=== PATIENT | female | born 1970 | race Caucasian/White ===

== ENCOUNTER 2025-10-08 01:40 | Inpatient (IN) | payer MEDICAID, OTHER ==
[~2025-10-08] VITALS: Ht 167.6 cm; Wt 98.8 kg
[2025-10-08] VITALS (11 sets, daily range): BP systolic 116–154; BP diastolic 61–75; PULSE 58–87; RESP 13–19; TEMP 97.3–98; O2SAT 95–98
--- NOTE | 2025-10-08 02:14 | ED.PDOC ---
HPI Comments 55-year-old male who came to ER for chest pains. Patient with history of hypertension. Has been complaining of diffuse chest pains for the past 2 days, that worsened tonight. Complaining also shortness of breath. No nausea or vomiting noted Chief Complaint: Chest Pain Time Seen by MD: 02:13 Reviewed Notes: Nurses Notes Allergies: Coded Allergies: NO KNOWN ALLERGIES (Unverified , 10/08/25) Information Source: Patient Mode of Arrival: Ambulatory Past Medical History PAST MEDICAL HISTORY: HTN Surgical History: Denies all surgeries Family History Family History: Reviewed,noncontributory to illness Social History Smoker: Non-Smoker Alcohol: Denies ETOH Use Drugs: Denies Drug Use Lives In: Home Constitutional: denies: chills, diaphoresis, fatigue, fever, malaise, sweats, weakness, others EENTM: denies: blurred vision, double vision, ear bleeding, ear discharge, ear drainage, ear pain, ear ringing, eye pain, eye redness, hearing loss, mouth pain, mouth swelling, nasal discharge, nose bleeding, nose congestion, nose pain, photophobia, tearing, throat pain, throat swelling, voice changes, others Respiratory: denies: cough, hemoptysis, orthopnea, SOB at rest, shortness of breath, SOB with excertion, stridor, wheezing, others Cardiovascular: reports: chest pain; denies: dizzy spells, diaphoresis, Dyspnea on exertion, edema, irregular heart beat, left arm pain, lightheadedness, palpitations, PND, syncope, others Gastrointestinal: denies: abdomen distended, abdominal pain, blood streaked bowels, constipated, diarrhea, dysphagia, difficulty swallowing, hematemesis, melena, nausea, poor appetite, poor fluid intake, rectal bleeding, rectal pain, vomiting, others Genitourinary: denies: burning, dysuria, flank pain, frequency, hematuria, incontinence, penile discharge, penile sore, pain, testicle pain, testicle swelling, urgency, others Neurological: denies: dizziness, fainting, headache, left sided numbness, left sided weakness, numbness, paresthesia, pre-existing deficit, right sided numbness, right sided weakness, seizure, speech problems, tingling, tremors, weakness, others Musculoskeletal: denies: back pain, gout, joint pain, joint swelling, muscle pain, muscle stiffness, neck pain, others Integumetry: denies: bruises, change in color, change in hair/nails, dryness, laceration, lesions, lumps, rash, wounds, others Allergic/Immunocompromised: denies: Difficulty Healing, Frequent Infections, Hives, Itching, others Hematologic/Lymphatic: denies: anemia, blood clots, easy bleeding, easy bruising, swollen glands, others Endocrine: denies: excessive hunger, excessive sweating, excessive thirst, excessive urination, flushing, intolerance to cold, intolerance to heat, unexplained weight gain, unexplained weight loss, others Psychiatric: denies: anxiety, bipolar disorder, depression, hopeless, panic disorder, schizophrenia, sleepless, suicidal, others Physical Exam General Appearance: No Apparent Distress, Normal HEENT: Normal ENT Inspection, Pharynx Normal, TMs Normal Neck: Full Range of Motion, Non-Tender, Normal, Normal Inspection Respiratory: Chest Non-Tender, Lungs Clear, No Accessory Muscle Use, No Respiratory Distress, Normal Breath Sounds Cardiovascular: No Edema, No JVD, No Murmur, No Gallop, Normal Peripheral Pulses, Regular Rate/Rhythm Breast Exam: Deferred Gastrointestinal: No Organomegaly, Non Tender, No Pulsatile Mass, Normal Bowel Sounds, Soft Genitalia: Deferred Pelvic: Deferred Rectal: Deferred Extremities: No calf tenderness, Normal capillary refill, Normal inspection, Normal range of motion, Non-tender, No pedal edema Musculoskeletal : Apperance: Normal 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 Was a procedure done?: No CP Differential Dx Differential Diagnosis: Angina, Anxiety / Panic Attack, Hyperventilation, Hypoxia Differential Diagnosis: Angina, Chest Wall Pain, Costochondritis, Esophageal reflux/spasm, Gastritis, Myocardial Infarction X-Ray, Labs, Meds, VS Vital Signs Date Time Temp Pulse Resp B/P (MAP) Pulse Ox O2 Delivery O2 Flow Rate FiO2 10/08/25 02:51 79 10/08/25 02:14 71 10/08/25 01:50 71 10/08/25 01:45 63 20 220/109 98 Lab Test 10/08/25 02:59 10/08/25 01:25 Range/Units Troponin I High Sensitivity 235 *H 149 *H </=54 ng/L White Blood Count 11.3 H 4.4-10.8 10^3/uL Red Blood Count 4.67 4.5-5.90 10^6/uL Hemoglobin 15.1 13.5-17.5 g/dL Hematocrit 44.8 41.0-53.0 % Mean Corpuscular Volume 96.0 80.0-100.0 fL Mean Corpuscular Hemoglobin 32.2 H 28.0-32.0 pg Mean Corpuscular Hemoglobin Concent 33.6 32.0-36.0 g/dL Red Cell Distribution Width 14.1 11.8-14.3 % Platelet Count 306 140-450 10^3/uL Mean Platelet Volume 7.4 6.9-10.8 fL Neutrophils (%) (Auto) 63.9 37.0-80.0 % Lymphocytes (%) (Auto) 25.9 10.0-50.0 % Monocytes (%) (Auto) 6.9 0.0-12.0 % Eosinophils (%) (Auto) 2.3 0.0-7.0 % Basophils (%) (Auto) 1.0 0.0-2.0 % Neutrophils # (Auto) 7.2 1.6-8.6 10 ^3/uL Lymphocytes # (Auto) 2.9 0.4-5.4 10 ^3/uL Monocytes # (Auto) 0.8 0-1.3 10 ^3/uL Eosinophils # (Auto) 0.3 0-0.8 10 ^3/uL Basophils # (Auto) 0.1 0-0.2 10 ^3/uL Nucleated Red Blood Cells 0.0 % Sodium Level 140 136-145 mmol/L Potassium Level 3.8 3.5-5.1 mmol/L Chloride Level 102 98-107 mmol/L Carbon Dioxide Level 28 20-31 mmol/L Anion Gap 10 5-15 Blood Urea Nitrogen 18 9-23 mg/dL Creatinine 0.64 L 0.700-1.30 mg/dL Glomerular Filtration Rate Calc 110 >90 mL/min BUN/Creatinine Ratio 28.1 H 10.0-20.0 Serum Glucose 140 H 74-106 mg/dL Calcium Level 9.5 8.7-10.4 mg/dL Current Medications Medications (Trade) Dose Ordered Sig/Abdoul Route Start Time Stop Time Status Last Admin Acetaminophen/ Hydrocodone Bitart ([place] 10/325MG Tab) 1 tab ONCE ONCE PO 10/08/25 02:15 10/08/25 02:16 DC 10/08/25 02:37 Time of 1ST Reevaluation: 02:10 Reevaluation 1ST: Unchanged Patient Education/Counseling: Diagnosis, Treatment Family Education/Counseling: No Family Present SEPSIS Sepsis Screen Date sepsis recognized/suspect: Oct 08, 2025 Time Sepsis recognized/suspect: 153 Recent Procedure: No On Antibiotic Therapy: No Respiratory Rate >20: No Heart Rate >90: No Temp<36 C (96.8 F) or >38.3 C: No SBP <90 or MAP <65 mmHG: No New Acute Mental Status Change: No Is the patient on CPAP, BIPAP,: No Physician Orders Chest Portable (10/08/25 01:46) Electrocardigram (10/08/25 01:46) Troponin-I Hs (10/08/25 04:46) Electrocardigram (10/08/25 02:46) Electrocardigram (10/08/25 04:46) Urine (10/08/25 ) Aspirin Tablet (10/08/25 03:45) Vital Signs Date Time Temp Pulse Resp B/P (MAP) Pulse Ox O2 Delivery O2 Flow Rate FiO2 10/08/25 02:51 79 10/08/25 02:14 71 10/08/25 01:50 71 10/08/25 01:45 63 20 220/109 98 Laboratory Tests Test 10/08/25 01:25 White Blood Count 11.3 10^3/uL (4.4-10.8) H Medications Medications Dose Ordered Sig/Abdoul Route Start Time Stop Time Status Last Admin Dose Admin Acetaminophen/ Hydrocodone Bitart 1 tab ONCE ONCE PO 10/08/25 02:15 10/08/25 02:16 DC 10/08/25 02:37 Departure 1 Departure Time of Disposition: 03:44 Impression: Primary Impression: Acute coronary syndrome Disposition: 09 ADMITTED INPATIENT Admit to: Tele Condition: Guarded Discharged With: Self Comments 55-year-old female with left parasternal chest pain. Her troponin is elevated. It increased from 180-235. Patient was given aspirin. Chest x-ray looks okay. Patient will need to be admitted for supportive care and further cardiac workup. Critical Care Note Critical Care Time?: Yes (35 min-critical care time only) Critical care comment: Total critical care time: Approximately 36 minutes Due to a high probability of clinically significant, life threatening deterioration, the patient required my highest level of preparedness to intervene emergently and I personally spent this critical care time directly and personally managing the patient. This critical care time included obtaining a history; examining the patient; pulse oximetry; ordering and review of studies; arranging urgent treatment with development of a management plan; evaluation of patient's response to treatment; frequent reassessment; and, discussions with other providers. This critical care time was performed to assess and manage the high probability of imminent, life-threatening deterioration that could result in multi-organ failure. It was exclusive of separately billable procedures and treating other patients. Stability Stability form required: No Heart Score Heart Score: Heart Score Response (Comments) Value History Moderate Suspicious 1 EKG Repolarization Disturb 1 Age 45-64 1 Risk Factors 1 or 2 risk factors 1 Troponin >3 x's Normal limit 2 Total 6 I personally scribed for AN RUSH MD ([email or web address]) on 10/08/25 at 02:14. Electronically submitted by Stephane Olivares ([facility]). AN RUSH MD Oct 08, 2025 02:14
[2025-10-08 02:18] LABS: Hematocrit 44.8 % (41.0-53.0); Hemoglobin 15.1 g/dL (13.5-17.5); Mean Corpuscular Hemoglobin 32.2 pg (28.0-32.0); Mean Corpuscular Volume 96.0 fL (80.0-100.0); Nucleated Red Blood Cells % 0.0 %
[2025-10-08 02:31] LABS: Chloride 102 mmol/L (98-107); Potassium 3.8 mmol/L (3.5-5.1); Sodium 140 mmol/L (136-145)
[2025-10-08 02:32] LABS: Anion Gap 10 (5-15); Carbon Dioxide 28 mmol/L (20-31)
[2025-10-08 02:33] LABS: Calcium 9.5 mg/dL (8.7-10.4)
[2025-10-08 02:37] LABS: BUN/Creatinine Ratio 28.1 (10.0-20.0); Blood Urea Nitrogen 18 mg/dL (9-23)
[2025-10-08] MEDS: HYDROcodone-ACET 10/325MG TAB PO ONE (02:37)
[2025-10-08 02:39] LABS: Glucose 140 mg/dL (74-106)
--- NOTE | 2025-10-08 03:19 | DVH ---
CHEST RADIOGRAPH INDICATION: CP TECHNIQUE: 1 view COMPARISON: None FINDINGS: Lines and Tubes: Spinal column stimulator device overlying the mid chest. Lungs/Pleura: No focal consolidation, pleural effusion or pneumothorax. Cardiomediastinum: Unremarkable. Other: No acute osseous abnormality. IMPRESSION: 1. No acute cardiopulmonary abnormality.
[2025-10-08] MEDS ORDERED: DOCUSATE SOD 100 MG CAP PO PRN (04:00)
[2025-10-08] MEDS ORDERED: ACETAMINOPHEN 325 MG TAB PO PRN ×2 (04:00→23:45)
--- NOTE | 2025-10-08 04:48 | ECG ---
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
--- NOTE | 2025-10-08 05:07 | DVHHP2 ---
History of Present Illness Reason for Visit: Acute coronary syndrome History of Present Illness The patient is a 55-year-old male with past medical history of hypertension who presented to [facility] ED with complaint of chest pain. Patient reports he has been experiencing diffuse chest pain for the past 2 days asso ciated with shortness of breaths. Patient was seen and evaluated in the ED, laboratory data shows WBC 11.3, platelets 306, sodium 140, potassium 3.8, BUN 18, creatinine 0.64, GFR 110, glucose 140, calcium 9.5, troponin 149, blood pressure 220/109 trending down to 164/88, heart rate 79, temperature 97.6 F, O2 saturation 98% on room air. Chest x-ray show no acute cardiopulmonary abn ormality. Patient was given clonidine 0.2 mg p.o. x1, please see medication orders section in the computer. On my assessment, patient denied chest pain at this moment, no headache, dizziness, diaphoresis, currently on oxygen, no diarrhea, nausea, vomiting, fever, no chills. Patient was admitted for further evaluation and medical management. Past Medical History HTN Past Surgical History Denies all surgeries Family History Reviewed, noncontributory to the management of this case. Past Social History The patient lives at home, denies smoking, alcohol or illicit drugs abuse. Review of Systems Constitutional: No: Fever, Chills, Sweats, Weakness, Malaise, Other Eyes: No: Pain, Vision change, Conjunctivae inflammation, Eyelid inflammation, Other, Redness ENT: No: Ear pain, Ear discharge, Nose pain, Nose discharge, Nose congestion, Mouth pain, Mouth swelling, Throat pain, Throat swelling, Other Respiratory: Shortness of breath; No: Cough, Dry, SOB with excertion, Wheezing, Hemoptysis, Pleuritic Pain, Sputum, Wheezing, Other Cardiovascular: Chest Pain; No: Palpitations, Orthopnea, Paroxysmal Noc. Dyspnea, Edema, Lt Headedness, Other Gastrointestinal: No: Nausea, Vomiting, Abdominal Pain, Diarrhea, Constipation, Melena, Hematochezia, Other Genitourinary: No Dysuria, No Frequency, No Incontinence, No Hematuria, No Retention, No Other Musculoskeletal: No: other, neck pain, shoulder pain, arm pain, back pain, hand pain, leg pain, foot pain Skin: No: Rash, Lesions, Jaundice, Bruising, Other Neurological: No: Weakness, Numbness, Incoordination, Change in speech, Confusion, Seizures, Other Allergies: Coded Allergies: NO KNOWN ALLERGIES (Unverified , 10/08/25) Medications Current Medications Medications Dose Ordered Sig/Abdoul Route Start Time Stop Time Status Last Admin Dose Admin Aspirin 81 mg DAILY PO 10/08/25 10:00 Atorvastatin Calcium 20 mg HS PO 10/08/25 22:00 Clonidine HCl 0.1 mg Q4HP PRN PO 10/08/25 04:00 Amlodipine Besylate 10 mg DAILY PO 10/08/25 10:00 Sodium Chloride 10 ml Q8HR IV 10/08/25 06:00 Acetaminophen/ Hydrocodone Bitart 1 tab Q4HP PRN PO 10/08/25 04:00 Ondansetron HCl 4 mg Q4HP PRN IV 10/08/25 04:00 Docusate Sodium 100 mg BIDPRN PRN PO 10/08/25 04:00 Acetaminophen 650 mg Q6HP PRN PO 10/08/25 04:00 Exam Vital Signs Vital Signs Date Time Temp Pulse Resp B/P (MAP) Pulse Ox O2 Delivery O2 Flow Rate FiO2 10/08/25 04:25 72 16 96 Room Air* 0 21 10/08/25 04:25 182/97 10/08/25 04:21 98.0 98.0 General Appearance: Alert, Oriented X3, Cooperative, No acute distress HEENT: Atraumatic, PERRLA, EOMI, Mucous membr. moist/pink Respiratory: Normal air movement Cardiovascular: Regular rate, Normal S1, Normal S2, No murmurs Abdominal: Normal bowel sounds, Soft, No tenderness, No hepatospenomegaly, No masses Extremities: No clubbing, No cyanosis, No edema, Normal pulses, No tenderness/swelling Skin: No rashes, No breakdown, No significant lesion Neuro: Normal speech, Normal tone, Sensation intact, Cranial nerves 3-12 NL, Reflexes 2+, Other (Generalized weakness) Psych/Mental Status: Mental status NL, Mood NL Labs/Xrays Labs Test 10/08/25 02:59 10/08/25 01:25 Range/Units Troponin I High Sensitivity 235 *H </=54 ng/L White Blood Count 11.3 H 4.4-10.8 10^3/uL Red Blood Count 4.67 4.5-5.90 10^6/uL Hemoglobin 15.1 13.5-17.5 g/dL Hematocrit 44.8 41.0-53.0 % Mean Corpuscular Volume 96.0 80.0-100.0 fL Mean Corpuscular Hemoglobin 32.2 H 28.0-32.0 pg Mean Corpuscular Hemoglobin Concent 33.6 32.0-36.0 g/dL Red Cell Distribution Width 14.1 11.8-14.3 % Platelet Count 306 140-450 10^3/uL Mean Platelet Volume 7.4 6.9-10.8 fL Neutrophils (%) (Auto) 63.9 37.0-80.0 % Lymphocytes (%) (Auto) 25.9 10.0-50.0 % Monocytes (%) (Auto) 6.9 0.0-12.0 % Eosinophils (%) (Auto) 2.3 0.0-7.0 % Basophils (%) (Auto) 1.0 0.0-2.0 % Neutrophils # (Auto) 7.2 1.6-8.6 10 ^3/uL Lymphocytes # (Auto) 2.9 0.4-5.4 10 ^3/uL Monocytes # (Auto) 0.8 0-1.3 10 ^3/uL Eosinophils # (Auto) 0.3 0-0.8 10 ^3/uL Basophils # (Auto) 0.1 0-0.2 10 ^3/uL Nucleated Red Blood Cells 0.0 % Sodium Level 140 136-145 mmol/L Potassium Level 3.8 3.5-5.1 mmol/L Chloride Level 102 98-107 mmol/L Carbon Dioxide Level 28 20-31 mmol/L Anion Gap 10 5-15 Blood Urea Nitrogen 18 9-23 mg/dL Creatinine 0.64 L 0.700-1.30 mg/dL Glomerular Filtration Rate Calc 110 >90 mL/min BUN/Creatinine Ratio 28.1 H 10.0-20.0 Serum Glucose 140 H 74-106 mg/dL Calcium Level 9.5 8.7-10.4 mg/dL PATIENT: JESSICA NOVOAMINERVA FRAIREACCT: [id number] UNIT: [id number] : 1970 LOC: ER ROOM / BED: / AGE / SEX: 55 / M ADM STATUS: REG ER SERVICE 0146 ORDERING PHYSICIAN: AN RUSH MD PROCEDURE(s): CXRP - CHEST PORTABLE REASON: CP ORDER NUMBER(s): [id number], ACCESSION NUMBER(s): [id number] CHEST RADIOGRAPH INDICATION: CP TECHNIQUE: 1 view COMPARISON: None FINDINGS: Lines and Tubes: Spinal column stimulator device overlying the mid chest. Lungs/Pleura: No focal consolidation, pleural effusion or pneumothorax. Cardio-mediastinum: Unremarkable. Other: No acute osseous abnormality. IMPRESSION: 1. No acute cardiopulmonary abnormality. SEPSIS Sepsis Screen Date sepsis recognized/suspect: Oct 08, 2025 Time Sepsis recognized/suspect: 424 Recent Procedure: No On Antibiotic Therapy: No Respiratory Rate >20: No Heart Rate >90: No Temp<36 C (96.8 F) or >38.3 C: No SBP <90 or MAP <65 mmHG: No New Acute Mental Status Change: No Is the patient on CPAP, BIPAP,: No Physician Orders Chest Portable (10/08/25 01:46) Troponin-I Hs (10/08/25 04:46) Electrocardigram (10/08/25 02:46) Electrocardigram (10/08/25 04:46) Urine (10/08/25 ) Complete Blood Count (10/08/25 04:00) Comprehensive Metabolic Panel (10/08/25 04:00) * Cardiology Consult (10/08/25 04:00) Aspirin Chewable Tablet (10/08/25 10:00) Atorvastatin (Lipitor) (10/08/25 22:00) Clonidine Hcl Tablet (Catapres Tablet) (10/08/25 04:00) Amlodipine Tablet (Norvasc Tablet) (10/08/25 10:00) Troponin-I Hs (10/08/25 05:00) Troponin-I Hs (10/08/25 07:00) Hemoglobin A1c (10/08/25 04:00) Allergies (10/08/25 04:00) Code Status (10/08/25 04:00) Sodium Chloride Lock (Saline Lock Ns) (10/08/25 06:00) Oxygen Per Hour (10/08/25 04:00) Hydrocodone-Acet 5/325mg Tab ([place] 5/32 (10/08/25 04:00) Ondansetron Hcl (Zofran) (10/08/25 04:00) Docusate Sodium Capsule (Colace Capsule) (10/08/25 04:00) Complete Blood Count (10/09/25 04:00) Comprehensive Metabolic Panel (10/09/25 04:00) Cardiac Diet-2gna,Lofat,Lochol (10/08/25 Breakfast) Condition: Serious (10/08/25 04:00) Acetaminophen Tablet (Tylenol Tablet) (10/08/25 04:00) Maintain Bed Rest (10/08/25 04:00) Sequential Compression Device (10/08/25 ) Admit (10/08/25 05:04) Nitroglycerin Sublingual (Ntrostat Subli (10/08/25 05:15) Morphine Sulfate Injection (10/08/25 05:15) Stat Ekg For Chest Pain (10/08/25 05:04) Notify Md Of Changes From Base (10/08/25 05:04) Dope Pourer For 24 Hours (10/08/25 05:04) Emergency Dysrhythmia Protocol (10/08/25 05:04) Rhythm Strips Once Every Shift (10/08/25 05:04) Oxygen By Nasal Cannula (10/08/25 05:04) Vital Signs Date Time Temp Pulse Resp B/P (MAP) Pulse Ox O2 Delivery O2 Flow Rate FiO2 10/08/25 04:25 72 16 96 Room Air* 0 21 10/08/25 04:25 182/97 10/08/25 04:21 98.0 72 16 182/97 (125) 98 98.0 10/08/25 04:04 70 10/08/25 02:51 79 10/08/25 02:14 71 10/08/25 01:50 71 10/08/25 01:45 63 20 220/109 98 Laboratory Tests Test 10/08/25 01:25 White Blood Count 11.3 10^3/uL (4.4-10.8) H Medications Medications Dose Ordered Sig/Abdoul Route Start Time Stop Time Status Last Admin Dose Admin Acetaminophen/ Hydrocodone Bitart 1 tab ONCE ONCE PO 10/08/25 02:15 10/08/25 02:16 DC 10/08/25 02:37 1 TAB Aspirin 325 mg ONCE ONCE PO 10/08/25 03:45 10/08/25 03:46 DC 10/08/25 03:57 325 MG Clonidine HCl 0.2 mg ONCE ONCE PO 10/08/25 04:00 10/08/25 04:16 DC 10/08/25 04:25 0.2 MG Assessment/Plan Assessment/Plan Acute coronary syndrome Hypertensive urgency Leukocytosis, unspecified Generalized weakness Plan 1. Admit to telemetry unit 2. Breathing treatment 3. Pain control management 4. Management of fluids and electrolytes 5. Consultation for cardiology 6. Diagnostic tests chest x-ray 7. DVT prophylaxis on aspirin 8. Repeat labs CBC, CMP in a.m. 9. Continue with current medical management 10. Treatment plan discussed with patient and RN. Patient verbalized understanding. Plan discussed with: Patient, Other (RN) My Orders Orders - RUBEN PIMENTEL DNP Procedure Category Date Status Time Complete Blood Count LAB 10/08/25 Logged 04:00 Comprehensive LAB 10/08/25 Logged Metabolic Panel 04:00 * Cardiology Consult CONS 10/08/25 Transmitted 04:00 Aspirin Chewable PHA 10/08/25 In Process Tablet 10:00 Atorvastatin (Lipitor) PHA 10/08/25 In Process 22:00 Clonidine Hcl Tablet PHA 10/08/25 In Process (Catapres Tablet) 04:00 Amlodipine Tablet PHA 10/08/25 In Process (Norvasc Tablet) 10:00 Troponin-I Hs LAB 10/08/25 Logged 05:00 Troponin-I Hs LAB 10/08/25 Logged 07:00 Hemoglobin A1c LAB 10/08/25 Logged 04:00 Allergies SHELLIE 10/08/25 In Process 04:00 Code Status CODE 10/08/25 Transmitted 04:00 Sodium Chloride Lock PHA 10/08/25 In Process (Saline Lock Ns) 06:00 Oxygen Per Hour RT 10/08/25 Transmitted 04:00 Hydrocodone-Acet PHA 10/08/25 In Process 5/325mg Tab ([facility] 04:00 Ondansetron Hcl PHA 10/08/25 In Process (Zofran) 04:00 Docusate Sodium PHA 10/08/25 In Process Capsule (Colace 04:00 Complete Blood Count LAB 10/09/25 Verified 04:00 Comprehensive LAB 10/09/25 Verified Metabolic Panel 04:00 Cardiac DIET 10/08/25 Transmitted Diet-2gna,Lofat,Lochol Breakfast Condition: Serious [place]LL[facility] 10/08/25 In Process 04:00 Acetaminophen Tablet [facility] 10/08/25 In Process (Tylenol Tablet) 04:00 Maintain Bed Rest [facility] 10/08/25 In Process 04:00 Sequential [facility] 10/08/25 In Process Compression Device Admit ADMIT 10/08/25 Transmitted 05:04 Nitroglycerin [facility] 10/08/25 Transmitted Sublingual (Ntrostat 05:15 Morphine Sulfate [facility] 10/08/25 Transmitted Injection 05:15 Stat Ekg For Chest [facility] 10/08/25 In Process Pain 05:04 Notify Md Of Changes [facility] 10/08/25 In Process From Base 05:04 Dope Pourer For [facility] 10/08/25 In Process 24 Hours 05:04 Emergency Dysrhythmia [facility] 10/08/25 In Process Protocol 05:04 Rhythm Strips Once [facility] 10/08/25 In Process Every Shift 05:04 Oxygen By Nasal 10/08/25 Transmitted Cannula 05:04 Problem List: (1) Acute coronary syndrome (2) Hypertensive urgency (3) Leukocytosis, unspecified (4) Generalized weakness Date of Service: Oct 08, 2025 Billing Provider: RUBEN PIMENTEL DNP Common Visit Codes: [id number] INP/OBS CARE (HIGH) RUBEN PIMENTEL DNP Oct 08, 2025 05:07
[2025-10-08] MEDS ORDERED: NITROGLYCERIN 0.4 MG SL TAB SL PRN ×2 (05:15→23:45)
[2025-10-08] MEDS ORDERED: MORPHINE SULFATE INJ 2 MG/ml SYRG IV PRN (05:15)
[2025-10-08 06:01] LABS: Hematocrit 42.8 % (41.0-53.0); Hemoglobin 14.6 g/dL (13.5-17.5); Mean Corpuscular Hemoglobin 32.6 pg (28.0-32.0); Mean Corpuscular Volume 95.4 fL (80.0-100.0); Nucleated Red Blood Cells % 0.0 %
[2025-10-08 06:14] LABS: Alanine Aminotransferase 21 U/L (7-40); Albumin 4.0 g/dL (3.2-4.8); Alkaline Phosphatase 87 U/L (46-116); Anion Gap 9 (5-15); BUN/Creatinine Ratio 30.6 (10.0-20.0); Blood Urea Nitrogen 19 mg/dL (9-23); Calcium 9.1 mg/dL (8.7-10.4); Carbon Dioxide 29 mmol/L (20-31); Chloride 102 mmol/L (98-107); Potassium 3.5 mmol/L (3.5-5.1); Sodium 140 mmol/L (136-145); Total Protein 6.9 g/dL (5.7-8.2)
[2025-10-08 06:15] LABS: Bilirubin, Total 0.6 mg/dL (0.2-1.0)
[2025-10-08 06:18] LABS: Glucose 112 mg/dL (74-106)
[2025-10-08] MEDS: MORPHINE SULFATE 4 MG/ML SYR/VIAL IV PRN (06:22)
[2025-10-08] MEDS: SODIUM CHLOR 0.9% PF (SALINE LOCK) 10ML VIAL/SYR IV SCH (06:22)
[2025-10-08] MEDS: ONDANSETRON HCL 4 MG/2 ML VIAL IV PRN (06:23)
[2025-10-08 08:32] LABS: Magnesium 2.0 mg/dL (1.6-2.6); Triglycerides 128.0 mg/dL (< 150)
[2025-10-08 08:34] LABS: Cholesterol 167.0 mg/dL (< 200); HDL Cholesterol 63.0 mg/dL (40-59)
--- NOTE | 2025-10-08 09:33 | ECG ---
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
--- NOTE | 2025-10-08 09:33 | ECG ---
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
--- NOTE | 2025-10-08 09:57 | DVHINCON2 ---
Date Seen: Oct 08, 2025 Referring Physician GABE Davidson Reason for Consultation Elevated troponin History of Present Illness This is a Amharic-speaking 55-year-old female patient presents to emergency room with chief complaint of chest pain. Patient reports that the chest pain began approximately three days ago. She describes the pain as unprovoked, intermittent, pressure-like in nature, substernal with radiation across the left and right side of her chest. Associated symptoms include shortness of breath. Alleviating factors include morphine. Initial twelve lead electrocardiogram done in the emergency room revealed sinus rhythm with underlying left bundle branch block (unsure if this is new or old given there are no previous EKG's found via cardioserver). Initial troponin level of 149ng/L with a significant up trend and current peak level of 1789ng/L. At the time of assessment, the patient denies any chest pain. Significant past medical history includes hypertension, chronic back pain, and morbid obesity. The patient denies any previous cardiac workup. She does mention significant familial cardiac history including her mother and sister who both are from a myocardial infarction. Past Medical History Past medical history reviewed. No other significant than mentioned above. Past Surgical History Cholecystectomy Family History Family history reviewed. Social History Denies the use of tobacco, alcohol or illicit drugs. Allergies: Coded Allergies: NO KNOWN ALLERGIES (Unverified , 10/08/25) Home Meds Home medications reviewed. Current Medications Current Medications Medications (Trade) Dose Ordered Sig/Abdoul Route PRN Reason Start Time Stop Time Status Last Admin Aspirin 81 mg DAILY PO 10/08/25 10:00 Atorvastatin Calcium (Lipitor) 20 mg HS PO 10/08/25 22:00 Clonidine HCl (Catapres Tablet) 0.1 mg Q4HP PRN PO SBP>150 10/08/25 04:00 Amlodipine Besylate (Norvasc Tablet) 10 mg DAILY PO 10/08/25 10:00 Sodium Chloride (Saline Lock Ns) 10 ml Q8HR IV 10/08/25 06:00 10/08/25 06:22 Acetaminophen/ Hydrocodone Bitart ([place] 5/325MG Tab) 1 tab Q4HP PRN PO MODERATE PAIN (4-6 PAIN SCALE) 10/08/25 04:00 Ondansetron HCl (Zofran) 4 mg Q4HP PRN IV NAUSEA / VOMITING 10/08/25 04:00 10/08/25 06:23 Docusate Sodium (Colace Capsule) 100 mg BIDPRN PRN PO FOR CONSTIPATION 10/08/25 04:00 Acetaminophen (Tylenol Tablet) 650 mg Q6HP PRN PO PAIN SCALE 1-3 OR TEMP>100.4 10/08/25 04:00 Nitroglycerin (Ntrostat Sublingual) 0.4 mg Q5MINP PRN SL FOR CHEST PAIN 10/08/25 05:15 Morphine Sulfate 2 mg Q30M PRN IV FOR CHEST PAIN 10/08/25 05:15 10/08/25 06:12 DC Morphine Sulfate 2 mg Q30M PRN IV FOR CHEST PAIN 10/08/25 06:15 10/08/25 06:22 Review of Systems Constitutional: No symptom reported Ears, Nose, & Throat: No symptom reported Eyes: No symptom reported Neurological: No symptoms reported Pulmonary/Respiratory: Shortness of breath Cardiovascular: Chest pain Gastrointestinal: No symptom reported Genitourinary: No symptom reported Musculoskeletal: No symptom reported Skin: No symptom reported Psychiatric: No symptom reported Endocrine: No symptom reported Hematologic/Lymphatic: No symptom reported Vital Signs Vital Signs Date Time Temp Pulse Resp B/P (MAP) Pulse Ox O2 Delivery O2 Flow Rate FiO2 10/08/25 08:05 97.7 58 18 139/69 (92) 96 97.7 10/08/25 08:00 Room Air* 0 21 Physical Exam General Appearance: Cooperative. Obese Pulmonary/Respiratory: Clear, bilateral breaths sounds. Cardiovascular/Chest: Regular rate and rhythm. Peripheral Pulses: 2+ Radial (R). 2+ Radial (L). 2+ Pedal (R). 2+ Pedal (L) Abdominal Exam: Normal bowel sounds. Ankle Exam: Negative ankle edema Lower extremities: Negative lower extremity edema Neuro/Mental Status: A/OX4, coherent. Thoughts/Psych: Normal thought pattern. Appropriate mood and affect. Good judgment and insight. Appearance: No acute distress. Skin Exam: Normal inspection. Normal color. Warm and dry. Labs/Diagnostic Data Labs Test 10/08/25 09:06 10/08/25 07:03 10/08/25 07:02 10/08/25 05:40 Range/Units Troponin I High Sensitivity 1789 *H </=34 ng/L Thyroid Stimulating Hormone (TSH) 1.86 0.55-4.78 uIU/mL Magnesium Level 2.0 1.6-2.6 mg/dL Triglycerides Level 128 < 150 mg/dL Cholesterol Level 167 < 200 mg/dL LDL Cholesterol 91 < 100 mg/dL HDL Cholesterol 63 H 40-59 mg/dL White Blood Count 11.9 H 4.4-10.8 10^3/uL Red Blood Count 4.48 L 4.5-5.90 10^6/uL Hemoglobin 14.6 13.5-17.5 g/dL Hematocrit 42.8 41.0-53.0 % Mean Corpuscular Volume 95.4 80.0-100.0 fL Mean Corpuscular Hemoglobin 32.6 H 28.0-32.0 pg Mean Corpuscular Hemoglobin Concent 34.2 32.0-36.0 g/dL Red Cell Distribution Width 13.8 11.8-14.3 % Platelet Count 278 140-450 10^3/uL Mean Platelet Volume 7.1 6.9-10.8 fL Neutrophils (%) (Auto) 65.7 37.0-80.0 % Lymphocytes (%) (Auto) 23.1 10.0-50.0 % Monocytes (%) (Auto) 8.3 0.0-12.0 % Eosinophils (%) (Auto) 2.2 0.0-7.0 % Basophils (%) (Auto) 0.7 0.0-2.0 % Neutrophils # (Auto) 7.8 1.6-8.6 10 ^3/uL Lymphocytes # (Auto) 2.7 0.4-5.4 10 ^3/uL Monocytes # (Auto) 1.0 0-1.3 10 ^3/uL Eosinophils # (Auto) 0.3 0-0.8 10 ^3/uL Basophils # (Auto) 0.1 0-0.2 10 ^3/uL Nucleated Red Blood Cells 0.0 % Sodium Level 140 136-145 mmol/L Potassium Level 3.5 3.5-5.1 mmol/L Chloride Level 102 98-107 mmol/L Carbon Dioxide Level 29 20-31 mmol/L Anion Gap 9 5-15 Blood Urea Nitrogen 19 9-23 mg/dL Creatinine 0.62 L 0.700-1.30 mg/dL Glomerular Filtration Rate Calc 111 >90 mL/min BUN/Creatinine Ratio 30.6 H 10.0-20.0 Serum Glucose 112 H 74-106 mg/dL Hemoglobin A1c 5.6 <5.7 % A1C Calcium Level 9.1 8.7-10.4 mg/dL Total Bilirubin 0.6 0.2-1.0 mg/dL Aspartate Amino Transferase (AST) 23 13-40 U/L Alanine Aminotransferase (ALT) 21 7-40 U/L Alkaline Phosphatase 87 46-116 U/L Total Protein 6.9 5.7-8.2 g/dL Albumin 4.0 3.2-4.8 g/dL Assessment NSTEMI, rule out coronary artery disease Hypertensive urgency Rule out structural heart disease Significant familial cardiac history Obesity Plan/Recommendation We will continue with the following plan/recommendations (Dr. Vieyra): * Echocardiogram to evaluate cardiac function and wall motion * Chest pain protocol * MARTINEZ score: 3 points * HEART score: 6 points * Heparin drip per ACS protocol * Blood pressure control * Single antiplatelet therapy and lipid-lowering agent * Continuous telemetry monitoring * Coronary angiogram Case reviewed and discussed with who personally reviewed twelve lead electrocardiogram. Given the patient's clinical presentation, up trending troponin level, and twelve lead electrocardiogram, the patient may benefit from a coronary angiogram with left heart catheterization. The procedure was discussed with the patient in full detail including risks and benefits. Risks include but are not limited to bleeding, contrast-induced nephropathy, coronary dissection, stroke, and even . The patient understands and is agreeable to undergo the procedure. We will schedule the patient at soonest availability on 10/08/2025. Thank you for allowing us to care for this patient. Please call with any questions or concerns. Critical care time spent: 44 minutes This medical document was created using an electronic medical record system with voice recognition software and computerized dictation system. Although this document has been carefully reviewed, there might still be some phonetic and typographical errors. Occasional wrong-word or ``sound-alike substitutions may have occurred due to the inherent limitations of voice recognition software. These areas are purely typographical due to imperfections of the software programs and do not reflect any compromise in the patient's medical care. Please read the chart carefully and recognize, using context, where these substitutions have occurred. Plan discussed with: Patient NYHA Physical activity limitations: NA Date of Service: Oct 08, 2025 Billing Provider: MICKY MONTES Cardiology Common Codes: 40429-EIABOYR INP/OBS CARE (High) Cardiology Consultation Codes: 76075-[id number] CONSULT <45MIN MICKY MONTES Oct 08, 2025 09:57
[2025-10-08 10:11] LABS: Hematocrit 43.2 % (36.0-46.0); Hemoglobin 14.4 g/dL (12.2-16.2); Mean Corpuscular Hemoglobin 32.4 pg (28.0-32.0); Mean Corpuscular Volume 96.7 fL (80.0-100.0); Nucleated Red Blood Cells % 0.0 %
[2025-10-08 10:26] LABS: INR 0.97 (0.9-1.15); Partial Thromboplastin Time 27.2 SEC (24.5-34.5); Prothrombin Time 10.3 sec (9.3-11.8)
[2025-10-08] MEDS: HEPARIN SODIUM (PORCINE) 5000 UNITS/ML 1ML VIAL IV ONE (10:33)
[2025-10-08] MEDS: HEPARIN DRIP/D5W 100UNITS/ML 250 ML IV SCH (10:47)
[2025-10-08 14:12] LABS: INR 1.0 (0.9-1.15); Partial Thromboplastin Time 50.8 SEC (24.5-34.5); Prothrombin Time 10.6 sec (9.3-11.8)
[2025-10-08 20:05] LABS: INR 0.97 (0.9-1.15); Partial Thromboplastin Time 41.1 SEC (24.5-34.5); Prothrombin Time 10.3 sec (9.3-11.8)
--- NOTE | 2025-10-08 21:18 | DVHSR ---
APPROVED REPORT EXAM: Two-dimensional and M-mode echocardiogram with Doppler and color Doppler. Blood Pressure: 139/69 mmHg INDICATION Evaluate Cardiac Function RISK FACTORS Obesity: Height: 5' 4", Weight: 274 DIMENSIONS LVDd 5.1 (3.8-5.7cm) LA (2D) 3.0 (1.9-4.0cm) Aortic Root 3.3 (2.0-3.7cm) LVDs 3.7 (2.5-4.0cm) LA (MM) (1.9-4.0cm) Aortic Cusp Exc 1.8 (1.5-2.0cm) EF (%) 55.0 (55-70%) Rt. Atrium 3.7 (1.9-4.0cm) Asc. Aorta cm IVSd 1.2 (0.7-1.1cm) RV (D) (1.8-2.4cm) PWd 1.2 (0.7-1.1cm) Mitral Valve Mitral Mitral Stenosis E wave 0.90m/s MV Mean GR. mmHg A wave 0.90m/s MV Peak GR. mmHg E/A ratio 1.0 2D MVA cm2 Aortic Valve Aortic Valve Aortic Stenosis V1 1.20m/s AO Mean GR. 7mmHg V2 1.80m/s AO Peak GR. 14mmHg LVOT Diameter 2.1 (1.8-2.4cm) Doppler YAJAIRA 2.31cm2 Tricuspid Valve TR Velocity 2.30m/s RVSP 30mmHg Conclusion LV EF IS 65% AND IS NORMAL NORMAL RV FUNCTION NORMAL VALVES NO EFFUSION
[2025-10-08] MEDS: IODIXANOL 320MG/ML 100ML BTL IV ONE (21:34)
[2025-10-08] MEDS: ANGIOMAX 250 MG VIAL IV ONE ×2 (21:46→22:30)
[2025-10-08] MEDS: VERAPAMIL 2.5MG/ML INJ 2ML VIAL IV ONE (21:46)
[2025-10-08] MEDS: fentaNYL CITRATE 100 MCG/2 ML VL ONE (21:46)
[2025-10-08] MEDS: LIDOCAINE 2%HCL (LOCAL ANESTH.) INJ 20ML MDV ONE (21:47)
[2025-10-08] MEDS: MIDAZOLAM HCL 2MG/2ML 2ml VIAL (1mg/ml) ONE (21:47)
[2025-10-08] MEDS: NITROGLYCERIN 50MG/250ML 250 ML IV ONE (21:47)
[2025-10-08] MEDS: SODIUM CHL 0.9% 50 ML ONE (21:47)
[2025-10-08] MEDS: ATORVASTATIN 20 MG TAB PO SCH (22:00)
--- NOTE | 2025-10-08 23:10 | DVHINCON2 ---
Date Seen: Oct 08, 2025 Referring Physician GABE Davidson Reason for Consultation Elevated troponin History of Present Illness This is a Lithuanian-speaking 55-year-old female with a past past medical history of hypertension, chronic back pain, and morbid obesity presents to emergency room with chief complaint of chest pain.Patient reports that the chest pain began approximately three days ago. She describes the pain as unprovoked, intermittent, pressure-like in nature, substernal with radiation across the left and right side of her chest. Associated symptoms include shortness of breath. Alleviating factors include morphine. Initial twelve lead electrocardiogram done in the emergency room revealed sinus rhythm with underlying left bundle branch block (unsure if this is new or old given there are no previous EKG's found via cardioserver). Initial troponin level of 149ng/L with a significant up trend and current peak level of 1789ng/L. At the time of assessment, the patient denies any chest pain. The patient denies any previous cardiac workup. She does me ntion significant familial cardiac history including her mother and sister who both are from a myocardial infarction. Chest x-ray showed NAD. Patient was admitted to the hospital. I am asked to consult on this patient. Allergies: Coded Allergies: NO KNOWN ALLERGIES (Unverified , 10/08/25) Current Medications Current Medications Medications (Trade) Dose Ordered Sig/Abdoul Route PRN Reason Start Time Stop Time Status Last Admin Aspirin 81 mg DAILY PO 10/08/25 10:00 10/08/25 10:15 Atorvastatin Calcium (Lipitor) 20 mg HS PO 10/08/25 22:00 Clonidine HCl (Catapres Tablet) 0.1 mg Q4HP PRN PO SBP>150 10/08/25 04:00 Amlodipine Besylate (Norvasc Tablet) 10 mg DAILY PO 10/08/25 10:00 Sodium Chloride (Saline Lock Ns) 10 ml Q8HR IV 10/08/25 06:00 10/08/25 06:22 Acetaminophen/ Hydrocodone Bitart ([place] 5/325MG Tab) 1 tab Q4HP PRN PO MODERATE PAIN (4-6 PAIN SCALE) 10/08/25 04:00 Ondansetron HCl (Zofran) 4 mg Q4HP PRN IV NAUSEA / VOMITING 10/08/25 04:00 10/08/25 06:23 Docusate Sodium (Colace Capsule) 100 mg BIDPRN PRN PO FOR CONSTIPATION 10/08/25 04:00 Acetaminophen (Tylenol Tablet) 650 mg Q6HP PRN PO PAIN SCALE 1-3 OR TEMP>100.4 10/08/25 04:00 Nitroglycerin (Ntrostat Sublingual) 0.4 mg Q5MINP PRN SL FOR CHEST PAIN 10/08/25 05:15 Morphine Sulfate 2 mg Q30M PRN IV FOR CHEST PAIN 10/08/25 05:15 10/08/25 06:12 DC Morphine Sulfate 2 mg Q30M PRN IV FOR CHEST PAIN 10/08/25 06:15 10/08/25 06:22 Heparin Sodium/ Dextrose 250 ml @ 10 mls/hr Q24H IV 10/08/25 10:00 10/08/25 10:47 Review of Systems Constitutional: No symptom reported Ears, Nose, & Throat: No symptom reported Eyes: No symptom reported Neurological: No symptoms reported Pulmonary/Respiratory: Shortness of breath Cardiovascular: Chest pain Gastrointestinal: No symptom reported Genitourinary: No symptom reported Musculoskeletal: No symptom reported Skin: No symptom reported Psychiatric: No symptom reported Endocrine: No symptom reported Hematologic/Lymphatic: No symptom reported Vital Signs Vital Signs Date Time Temp Pulse Resp B/P (MAP) Pulse Ox O2 Delivery O2 Flow Rate FiO2 10/08/25 10:11 60 16 110/48 10/08/25 10:00 94 10/08/25 08:05 97.7 97.7 10/08/25 08:00 Room Air* 0 21 Physical Exam GENERAL: Alert and oriented x 3. No acute distress. Obese. EYES: PERRL, EOMI. Anicteric. HENT: Moist mucous membranes. LUNGS: Clear to auscultation bilaterally. CARDIOVASCULAR: Regular rate and rhythm. ABDOMEN: Soft, nontender and nondistended. EXTREMITIES: No edema. NEUROLOGIC: No focal neurological deficits. SKIN: Warm, dry. Labs/Diagnostic Data Labs Test 10/08/25 10:50 10/08/25 09:59 10/08/25 07:03 10/08/25 07:02 Range/Units Troponin I High Sensitivity 3001 *H </=34 ng/L White Blood Count 9.6 4.4-10.8 10^3/uL Red Blood Count 4.46 4.0-5.20 10^6/uL Hemoglobin 14.4 12.2-16.2 g/dL Hematocrit 43.2 36.0-46.0 % Mean Corpuscular Volume 96.7 80.0-100.0 fL Mean Corpuscular Hemoglobin 32.4 H 28.0-32.0 pg Mean Corpuscular Hemoglobin Concent 33.5 32.0-36.0 g/dL Red Cell Distribution Width 14.0 11.8-14.3 % Platelet Count 273 140-450 10^3/uL Mean Platelet Volume 7.1 6.9-10.8 fL Neutrophils (%) (Auto) 64.8 37.0-80.0 % Lymphocytes (%) (Auto) 24.5 10.0-50.0 % Monocytes (%) (Auto) 6.8 0.0-12.0 % Eosinophils (%) (Auto) 3.4 0.0-7.0 % Basophils (%) (Auto) 0.5 0.0-2.0 % Neutrophils # (Auto) 6.2 1.6-8.6 10 ^3/uL Lymphocytes # (Auto) 2.4 0.4-5.4 10 ^3/uL Monocytes # (Auto) 0.7 0-1.3 10 ^3/uL Eosinophils # (Auto) 0.3 0-0.8 10 ^3/uL Basophils # (Auto) 0 0-0.2 10 ^3/uL Nucleated Red Blood Cells 0.0 % Prothrombin Time 10.3 9.3-11.8 sec Prothrombin Time INR 0.97 0.9-1.15 Activated Partial Thromboplast Time 27.2 24.5-34.5 SEC Thyroid Stimulating Hormone (TSH) 1.86 0.55-4.78 uIU/mL Magnesium Level 2.0 1.6-2.6 mg/dL Triglycerides Level 128 < 150 mg/dL Cholesterol Level 167 < 200 mg/dL LDL Cholesterol 91 < 100 mg/dL HDL Cholesterol 63 H 40-59 mg/dL Test 10/08/25 05:40 Range/Units Sodium Level 140 136-145 mmol/L Potassium Level 3.5 3.5-5.1 mmol/L Chloride Level 102 98-107 mmol/L Carbon Dioxide Level 29 20-31 mmol/L Anion Gap 9 5-15 Blood Urea Nitrogen 19 9-23 mg/dL Creatinine 0.62 L 0.700-1.30 mg/dL Glomerular Filtration Rate Calc 111 >90 mL/min BUN/Creatinine Ratio 30.6 H 10.0-20.0 Serum Glucose 112 H 74-106 mg/dL Hemoglobin A1c 5.6 <5.7 % A1C Calcium Level 9.1 8.7-10.4 mg/dL Total Bilirubin 0.6 0.2-1.0 mg/dL Aspartate Amino Transferase (AST) 23 13-40 U/L Alanine Aminotransferase (ALT) 21 7-40 U/L Alkaline Phosphatase 87 46-116 U/L Total Protein 6.9 5.7-8.2 g/dL Albumin 4.0 3.2-4.8 g/dL Assessment NSTEMI, rule out coronary artery disease. Hypertensive urgency. Rule out structural heart disease. Significant familial cardiac history. Obesity. Plan/Recommendation I agree with your ongoing assessment and care of plan. Patient has been seen by Zaida Velasquez NP on my behalf, her and I discussed the plan with the patient. Echocardiogram to evaluate cardiac function and wall motion. Chest pain protocol. MARTINEZ score: 3 points. HEART score: 6 points. Heparin drip per ACS protocol. Blood pressure control. Single antiplatelet therapy and lipid-lowering agent. Continuous telemetry monitoring. Coronary angiogram. I personally reviewed twelve lead electrocardiogram. Given the patient's clinical presentation, up trending troponin level, and twelve lead electrocardiogram, the patient may benefit from a coronary angiogram with left heart catheterization. The procedure was discussed with the patient in full detail including risks and benefits. Risks include but are not limited to bleeding, contrast-induced nephropathy, coronary dissection, stroke, and even . The patient understands and is agreeable to undergo the procedure. We will schedule the patient at soonest availability on 10/08/2025. Additional plan as per the hospital course. A total of 45 minutes was spent reviewing the patient record, examining the patient, making a diagnostic and therapeutic plan, discussing this plan with medical personnel, following up on diagnostic studies and following the patient for clinical stability excluding any and all procedures. At least 50% of this time was spent in direct, [id number] contact. Plan discussed with: Patient NYHA Physical activity limitations: NA Date of Service: Oct 08, 2025 Billing Provider: JOSÉ MIGUEL OSORIO MD Cardiology Common Codes: 24048-[id number] INP/OBS CARE (High) Cardiology Consultation Codes: [id number] CONSULT <45MIN JOSÉ MIGUEL OSORIO MD Oct 08, 2025 13:14
[2025-10-08] MEDS: CLOPIDOGREL BISULFATE 75 MG TAB ONE (23:41)
[2025-10-09] VITALS (15 sets, daily range): BP systolic 107–145; BP diastolic 58–91; PULSE 64–86; RESP 15–20; TEMP 97–98.7; O2SAT 91–100
--- NOTE | 2025-10-09 00:09 | DVHOP ---
DATE OF SURGERY: 10/08/2025 TECHNIQUE PERFORMED: * Emergency case. * Left coronary artery angiography. * Management of conscious sedation. * Mechanical thrombectomy of the left circumflex artery with the help of the [place] catheter. * Balloon angioplasty of the proximal region of the left circumflex artery with 3.0 x 12 mm length semi-compliant balloon. * Stenting and angioplasty of the circumflex artery with 3.0 x 80 mm in length [place] stent of [employer]. * Intravascular ultrasound of the left main and also the left circumflex artery. * Balloon angioplasty of the left circumflex artery especially of the stented region with 3.5 x 15 mm length noncompliant balloon and made stent size to 3.5 mm in size. COMPLICATIONS: None. COOPERATIVE EXTENSION AGENT: Bruno Miranda Juliet, and Janneth. INDICATIONS: The patient has a known ST elevation myocardial infarction, troponin very high and the patient has 10/10 chest pain. DESCRIPTION OF PROCEDURE: The procedure risks and benefits all have been explained and we have given Angiomax. We also put AL1 guiding catheter here which had been intubated into the left main and then a [employer] wire was passed, which went into the left artery. We put [place] catheter and thrombectomy was done. Subsequently, we began the thrombectomy. We had put a balloon 3.0 x 12 mm length, semi compliant balloon angioplasty was done. After doing balloon angioplasty with a stent 3.0 x 18 mm, [place] stent was deployed in the proximal region of the left circumflex artery just above the site of the bifurcation of the circumflex artery and taken up to the 17 atmospheres. Stent site was increased to 3.25 mm in size. Subsequently, we also did intravascular ultrasound. We found there was a minor gap between the stent and the media, so I put a 3.5 x 15 mm length noncompliant balloon and the stent size being meshed up to the 3.5 mm in size by taking up to almost 17 atmosphere proximal, medial, and distally. Balloon deflated. Balloon had been discontinued. Angiography was done, result was satisfactory. There were no complications. So now, balloon, wire, catheter all have been discontinued. CONCLUSION: * Prior to performing the procedure #1, the left circumflex artery from the proximal mid region is a type 3 long lesion, thrombogenic lesion. * MARTINEZ grade 2 flow and 99.9% block. * The postprocedure MARTINEZ grade 3 flow and residual stenosis is 0%. No spasm. No dissection. No thrombosis. Procedure went well. PLAN OF ACTION: Advised for the aspirin and Plavix and beta-soila and cholesterol reducing medicine. Kristi Vieyra MD MP/NINA TID: [id number] RECEIPT: [id number] [facility]
--- NOTE | 2025-10-09 00:33 | DVHOP ---
DATE OF SURGERY: 10/08/2025 TECHNIQUE PERFORMED: * Emergency case. * Right coronary artery angiography. * Stenting and angioplasty of the posterior descending artery with 3.0 x 15 mm in length [place] stent of [employer]. COMPLICATIONS: None. ASSISTANTS: Assisted by Bruno Miranda Joshua, Juliet, Sandra and Angela. INDICATIONS: the patient has underlying 90% narrowing of the posterior descending artery arising from the right coronary artery, inferior wall hypokinesis, elevation of the troponin. DESCRIPTION OF PROCEDURE: The procedure, risks, benefits all have been explained. The patient understood the explanation very well. 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 We started Angiomax. JL1 catheter was engaged in the right coronary artery. [employer] wire was passed which went smoothly in the posterior descending artery. Subsequently, we put a 3.0 x 15 mm in length [place] drug-eluting stent of [employer], deployed at total of 17 atmospheres. Stent size was increased to 3.25 mm in size,inflated for 31 seconds and subsequently for 21 seconds. Balloon deflated, balloon had been discontinued. Angiography was done. Result was satisfactory. There were no complications. Balloon, wire, catheter all have been discontinued. CONCLUSION: * Prior to performing the procedure #1, the right coronary artery bifurcates and give a large posterior descending artery and the posterior descending artery has 90% narrowing noted in the mid region. * Post-procedure MARTINEZ grade 3 flow, residual stenosis is 0%. No spasm. No dissection. No thrombosis. Procedure went well. PLAN OF ACTION: Advised for aspirin 81 mg, Plavix 75 mg, metoprolol and Lipitor and outpatient followup. Kristi Vieyra MD MP/HERNAN TID: [id number] RECEIPT: [id number] [facility]Harry
--- NOTE | 2025-10-09 00:35 | DVH ---
CLINICAL HISTORY: STEMI. TECHNIQUE: Single frontal view of the chest was obtained. COMPARISON: XY CHEST PORTABLE on DOS: 10/08/25. FINDINGS: Devices/lines/tubes: Spinal stimulator device projects over the left upper hemiabdomen and spinal stimulator leads project over the midthoracic spine. Lungs: Clear. Pleura: No pneumothorax or pleural effusion. Cardiomediastinal silhouette: Normal in size. Bones: No acute osseous abnormality. Imaged Upper Abdomen: Unremarkable. IMPRESSION: NO ACUTE CARDIOPULMONARY PROCESS.
[2025-10-09] MEDS: HYDROcodone-ACET 5/325MG TAB PO PRN (04:03)
[2025-10-09] MEDS: SODIUM CHLOR 0.9% PF (SALINE LOCK) 10ML VIAL/SYR IV SCH (06:04)
[2025-10-09 07:05] LABS: Hematocrit 42.7 % (36.0-46.0); Hemoglobin 14.5 g/dL (12.2-16.2); Mean Corpuscular Hemoglobin 32.7 pg (28.0-32.0); Mean Corpuscular Volume 96.4 fL (80.0-100.0); Nucleated Red Blood Cells % 0.0 %
[2025-10-09 07:25] LABS: Alanine Aminotransferase 26 U/L (7-40); Albumin 3.7 g/dL (3.2-4.8); Alkaline Phosphatase 82 U/L (46-116); Anion Gap 10 (5-15); BUN/Creatinine Ratio 15.3 (10.0-20.0); Calcium 9.1 mg/dL (8.7-10.4); Carbon Dioxide 27 mmol/L (20-31); Chloride 104 mmol/L (98-107); Cholesterol 145 mg/dL (< 200); Glucose 88 mg/dL (74-106); HDL Cholesterol 49 mg/dL (40-59); Magnesium 1.9 mg/dL (1.6-2.6); Potassium 3.5 mmol/L (3.5-5.1); Sodium 141 mmol/L (136-145); Total Protein 6.4 g/dL (5.7-8.2)
[2025-10-09 07:26] LABS: Bilirubin, Total 0.8 mg/dL (0.2-1.0)
[2025-10-09 07:31] LABS: Blood Urea Nitrogen 9 mg/dL (9-23); Triglycerides 217 mg/dL (< 150)
[2025-10-09] MEDS: CLOPIDOGREL BISULFATE 75 MG TAB PO SCH (09:37)
[2025-10-09] MEDS: ENALAPRIL MALEATE 2.5 MG TAB PO SCH (09:37)
[2025-10-09] MEDS: METOPROLOL SUCCINATE XL 50 MG TAB PO SCH (09:39)
--- NOTE | 2025-10-09 11:47 | DVHPN2 ---
Consult Progress Note Subjective Patient reports: Feels better Other Systems: Patient is in normal sinus rhythm on quality assurance monitor body. Denies any cardiac complaints at time of assessment Objective vital signs Vital Sign Date Time Temp Pulse Resp B/P (MAP) Pulse Ox O2 Delivery O2 Flow Rate FiO2 10/09/25 09:39 77 138/96 10/09/25 09:00 97.1 18 92 97.1 10/08/25 20:00 Nasal Cannula* 2 28 Total Intake and Output 10/08/25 10/08/25 10/09/25 15:00 23:00 07:00 Intake Total 30 ml 0 ml 0 ml Output Total 200 ml Balance 30 ml 0 ml -200 ml medications Current Medications Medications Dose Ordered Sig/Abdoul Route Start Time Stop Time Status Last Admin Dose Admin Clonidine HCl 0.1 mg Q4HP PRN PO 10/08/25 04:00 Amlodipine Besylate 10 mg DAILY PO 10/08/25 10:00 10/09/25 09:38 10 MG Acetaminophen/ Hydrocodone Bitart 1 tab Q4HP PRN PO 10/08/25 04:00 10/09/25 04:03 1 TAB Ondansetron HCl 4 mg Q4HP PRN IV 10/08/25 04:00 10/08/25 06:23 4 MG Docusate Sodium 100 mg BIDPRN PRN PO 10/08/25 04:00 Morphine Sulfate 2 mg Q30M PRN IV 10/08/25 06:15 10/08/25 06:22 2 MG Sodium Chloride 10 ml Q8HR IV 10/09/25 06:00 10/09/25 06:04 10 ML Nitroglycerin 0.4 mg Q5M PRN SL 10/08/25 23:45 Aspirin 81 mg DAILY PO 10/09/25 10:00 10/09/25 09:38 81 MG Enalapril Maleate 2.5 mg DAILY PO 10/09/25 10:00 10/09/25 09:37 2.5 MG Metoprolol Succinate 25 mg DAILY PO 10/09/25 10:00 10/09/25 09:39 25 MG Atorvastatin Calcium 40 mg HS PO 10/09/25 22:00 Acetaminophen 650 mg Q6HP PRN PO 10/08/25 23:45 Clopidogrel Bisulfate 75 mg DAILY PO 10/09/25 10:00 12/13/25 09:37 75 MG Examination: GENERAL:Normal, LUNGS:Normal, CVS:Normal, NEURO:Normal laboratory and microbiology Laboratory Tests 10/09/25 05:10 Test 10/09/25 05:10 Range/Units Serum Glucose 88 74-106 mg/dL Problem List/Assessment/Plan Problem List/Assessment/Plan NSTEMI, s/p PTCA with mechanical thrombectomy of left circumflex and stenting to circumflex and PDA Hypertensive urgency Hypertriglyceridemia, newly diagnosed Significant familial cardiac history Obesity Plan/Recommendations (Dr. Vieyra): Case discussed with . The patient underwent a coronary angiogram with left heart catheterization in which there was a thrombectomy of the left circumflex as well as stenting to the circumflex and PDA arteries. A transthoracic echocardiogram reveals an EF of 65%. We will recommend for the patient to continue with dual antiplatelet therapy, lipid-lowering agent, and beta-soila. Extensive education was given to the patient regarding compliance with medications, especially dual antiplatelet therapy uninterrupted for one year. Risk factor modifications such as dietary and lifestyle changes were also discussed with the patient. The patient mentions that she does not have insurance nor a primary care physician. We will order a social service consultation to help the patient with insurance and PCP set up. The patient was also instructed that she will need to follow up with a harvest contractor in the outpatient setting. Patient verbalized understanding. Thank you for allowing us to care for this patient. Please call with any questions or concerns. This medical document was created using an electronic medical record system with voice recognition software and computerized dictation system. Although this document has been carefully reviewed, there might still be some phonetic and typographical errors. Occasional wrong-word or ``sound-alike substitutions may have occurred due to the inherent limitations of voice recognition software. These areas are purely typographical due to imperfections of the software programs and do not reflect any compromise in the patient's medical care. Please read the chart carefully and recognize, using context, where these substitutions have occurred. Plan discussed with: Patient Date of Service: Oct 09, 2025 Billing Provider: MICKY MONTES Common Visit Codes: [id number] INP/OBS CARE(HIGH) MICKY MONTES Oct 09, 2025 11:47
--- NOTE | 2025-10-09 19:08 | DVHPN2 ---
Consult Progress Note Subjective Patient reports: Feels better Other Systems: Patient was seen and evaluated in follow up. Patient is in normal sinus rhythm on threat monitoring analyst. Denies any cardiac complaints at time of assessment. The patient underwent a coronary angiogram with left heart catheterization in which there was a thrombectomy of the left circumflex as well as stenting to the circumflex and PDA arteries. Procedure went well. Advised for aspirin 81 mg, Plavix 75 mg, metoprolol and Lipitor and outpatient followup. Telemetry reviewed. Objective vital signs Vital Sign Date Time Temp Pulse Resp B/P (MAP) Pulse Ox O2 Delivery O2 Flow Rate FiO2 10/09/25 12:37 97.2 73 18 124/73 (90) 95 97.2 10/09/25 08:00 Nasal Cannula* 2 28 Total Intake and Output 10/08/25 10/08/25 10/09/25 15:00 23:00 07:00 Intake Total 30 ml 0 ml 0 ml Output Total 200 ml Balance 30 ml 0 ml -200 ml medications Current Medications Medications Dose Ordered Sig/Abdoul Route Start Time Stop Time Status Last Admin Dose Admin Clonidine HCl 0.1 mg Q4HP PRN PO 10/08/25 04:00 Amlodipine Besylate 10 mg DAILY PO 10/08/25 10:00 10/09/25 09:38 10 MG Acetaminophen/ Hydrocodone Bitart 1 tab Q4HP PRN PO 10/08/25 04:00 10/09/25 04:03 1 TAB Ondansetron HCl 4 mg Q4HP PRN IV 10/08/25 04:00 10/08/25 06:23 4 MG Docusate Sodium 100 mg BIDPRN PRN PO 10/08/25 04:00 Morphine Sulfate 2 mg Q30M PRN IV 10/08/25 06:15 10/08/25 06:22 2 MG Sodium Chloride 10 ml Q8HR IV 10/09/25 06:00 10/09/25 06:04 10 ML Nitroglycerin 0.4 mg Q5M PRN SL 10/08/25 23:45 Aspirin 81 mg DAILY PO 10/09/25 10:00 10/09/25 09:38 81 MG Enalapril Maleate 2.5 mg DAILY PO 10/09/25 10:00 10/09/25 09:37 2.5 MG Metoprolol Succinate 25 mg DAILY PO 10/09/25 10:00 10/09/25 09:39 25 MG Atorvastatin Calcium 40 mg HS PO 10/09/25 22:00 Acetaminophen 650 mg Q6HP PRN PO 10/08/25 23:45 Clopidogrel Bisulfate 75 mg DAILY PO 10/09/25 10:00 10/09/25 09:37 75 MG Examination: GENERAL:Normal, HEENT:Normal, NECK:Normal, LUNGS:Normal, CVS:Normal, ABDOMEN:Normal, MSK:Normal, SKIN:Normal, NEURO:Normal laboratory and microbiology Laboratory Tests 10/09/25 05:10 Test 10/09/25 05:10 Range/Units Serum Glucose 88 74-106 mg/dL Problem List/Assessment/Plan Problem List/Assessment/Plan Problem List NSTEMI, s/p PTCA with mechanical thrombectomy of left circumflex and stenting to circumflex and PDA. Hypertensive urgency. Hypertriglyceridemia, newly diagnosed. Significant familial cardiac history. Obesity. Plan/Recommendation Continued all current supportive medical care. Patient has been seen by Zaida Velasquez NP on my behalf, her and I discussed the plan with the patient. The patient underwent a coronary angiogram with left heart catheterization in which there was a thrombectomy of the left circumflex as well as stenting to the circumflex and PDA arteries. A transthoracic echocardiogram reveals an EF of 65%. We will recommend for the patient to continue with dual antiplatelet therapy, lipid-lowering agent, and beta-soila. Extensive education was given to the patient regarding compliance with medications, especially dual antiplatelet therapy uninterrupted for one year. Risk factor modifications such as dietary and lifestyle changes were also discussed with the patient. The patient mentions that she does not have insurance nor a primary care physician. We will order a social service consultation to help the patient with insurance and PCP set up. The patient was also instructed that she will need to follow up with a colorist in the outpatient setting. Patient verbalized understanding. Additional plan as per the hospital course. Plan discussed with: Patient Date of Service: Oct 09, 2025 Billing Provider: JOSÉ MIGUEL OSORIO MD Cardiology Common Codes: [id number] INP/OBS CARE (High), [id number] HOSP CARE(High JOSÉ MIGUEL OSORIO MD Oct 09, 2025 13:25
[2025-10-09] MEDS: ATORVASTATIN 20 MG TAB PO SCH (21:27)
[2025-10-10] VITALS (9 sets, daily range): BP systolic 120–140; BP diastolic 73–83; PULSE 73–84; RESP 16–20; TEMP 97.6–98.4; O2SAT 93–96
[2025-10-10] MEDS ORDERED: CLOPIDOGREL BISULFATE 75 MG TAB PO SCH (10:00)
[2025-10-10] MEDS ORDERED: METO-6 PO (15:58)
[2025-10-10] MEDS ORDERED: ENAL1TAB42 PO (15:58)
[2025-10-10] MEDS ORDERED: ASPI-325 PO (15:58)
[2025-10-10] MEDS ORDERED: CLOP75TA70 PO (15:58)
[2025-10-10] MEDS ORDERED: AML5T PO (15:58)
[2025-10-10] MEDS ORDERED: ATOR20TA50 PO (15:58)
--- NOTE | 2025-10-10 17:26 | DVHPN2 ---
Consult Progress Note Subjective Patient reports: Feels better Other Systems: Patient is in normal sinus rhythm at time of assessment Denies any cardiac symptoms Objective vital signs Vital Sign Date Time Temp Pulse Resp B/P (MAP) Pulse Ox O2 Delivery O2 Flow Rate FiO2 10/10/25 16:49 97.7 79 19 95 10/10/25 16:47 126/73 (90) 10/10/25 08:00 Room Air* 0 21 Total Intake and Output 10/09/25 10/09/25 10/10/25 15:00 23:00 07:00 Intake Total 600 ml 400 ml Balance 600 ml 400 ml medications Current Medications Medications Dose Ordered Sig/Abdoul Route Start Time Stop Time Status Last Admin Dose Admin Clonidine HCl 0.1 mg Q4HP PRN PO 10/08/25 04:00 Amlodipine Besylate 10 mg DAILY PO 10/08/25 10:00 10/10/25 10:09 10 MG Acetaminophen/ Hydrocodone Bitart 1 tab Q4HP PRN PO 10/08/25 04:00 10/09/25 04:03 1 TAB Ondansetron HCl 4 mg Q4HP PRN IV 10/08/25 04:00 10/08/25 06:23 4 MG Docusate Sodium 100 mg BIDPRN PRN PO 10/08/25 04:00 Morphine Sulfate 2 mg Q30M PRN IV 10/08/25 06:15 10/08/25 06:22 2 MG Sodium Chloride 10 ml Q8HR IV 10/09/25 06:00 10/10/25 14:19 10 ML Nitroglycerin 0.4 mg Q5M PRN SL 10/08/25 23:45 Aspirin 81 mg DAILY PO 10/09/25 10:00 10/10/25 10:09 81 MG Enalapril Maleate 2.5 mg DAILY PO 10/09/25 10:00 10/10/25 10:09 2.5 MG Metoprolol Succinate 25 mg DAILY PO 10/09/25 10:00 10/10/25 10:09 25 MG Atorvastatin Calcium 40 mg HS PO 10/09/25 22:00 10/09/25 21:27 40 MG Acetaminophen 650 mg Q6HP PRN PO 10/08/25 23:45 Clopidogrel Bisulfate 75 mg DAILY PO 10/09/25 10:00 10/10/25 10:10 75 MG Examination: GENERAL:Normal, LUNGS:Normal, CVS:Normal, NEURO:Normal laboratory and microbiology Laboratory Tests 10/09/25 05:10 Test 10/09/25 05:10 Range/Units Serum Glucose 88 74-106 mg/dL Problem List/Assessment/Plan Problem List/Assessment/Plan NSTEMI, s/p PTCA with mechanical thrombectomy of left circumflex and stenting to circumflex and PDA Hypertensive urgency Hypertriglyceridemia, newly diagnosed Significant familial cardiac history Obesity Plan/Recommendations (Dr. Vieyra): The patient was seen and examined at bedside with . The patient underwent a coronary angiogram with left heart catheterization in which there was a thrombectomy of the left circumflex as well as stenting to the circumflex and PDA arteries. A transthoracic echocardiogram reveals an EF of 65%. We will recommend for the patient to continue with dual antiplatelet therapy, lipid- lowering agent, and beta-soila. Extensive education was given to the patient regarding compliance with medications, especially dual antiplatelet therapy uninterrupted for one year. Risk factor modifications such as dietary and lifestyle changes were also discussed with the patient. The patient mentions that she does not have insurance nor a primary care physician. We will order a social service consultation to help the patient with insurance and PCP set up. The patient was also instructed that she will need to follow up with a bag inspector in the outpatient setting. Patient verbalized understanding. There is no further inpatient cardiac workup indicated at this time. Thank you for allowing us to care for this patient. Please call with any questions or concerns. This medical document was created using an electronic medical record system with voice recognition software and computerized dictation system. Although this document has been carefully reviewed, there might still be some phonetic and typographical errors. Occasional wrong-word or ``sound-alike substitutions may have occurred due to the inherent limitations of voice recognition software. These areas are purely typographical due to imperfections of the software programs and do not reflect any compromise in the patient's medical care. Please read the chart carefully and recognize, using context, where these substitutions have occurred. Plan discussed with: Patient Date of Service: Oct 10, 2025 Billing Provider: MICKY MONTES Common Visit Codes: [id number] INP/OBS CARE(HIGH) MICKY MONTES Oct 10, 2025 17:26
--- NOTE | 2025-10-10 18:59 | DVHOP ---
DATE OF SURGERY: 10/08/2025 TECHNIQUE PERFORMED: * Emergency case. * Ultrasound of right radial artery. * Management of conscious sedation. * Ultrasound-guided insertion of 6-British arterial line in the right radial artery. * Left heart catheterization. * Left ventriculogram. * [place] selective left and right coronary artery angiography. ASSISTANTS: Samira Marks Sandra, Angela, and Bassam. COMPLICATIONS: None. INDICATIONS: The patient has a known ST-elevation myocardial infarction. DESCRIPTION OF PROCEDURE: The procedure risks and benefits have been explained brought to our cath lab radiological technologist on urgently on Saturday evening. The right radial area was thoroughly cleaned with soap and Betadine and a 6-British arterial line was placed. The TIG catheter 5-British 4.0 was passed and left coronary angiography has been done. We also did a right coronary angiography. At the end of the procedure, we also put a pigtail catheter and a complete left heart cath also had been done. The right angiography was performed with 20 mL dye. Post-LV gram, left ventricular end-diastolic pressure performed. With the help of pull-through technique, aortic pressure was also performed. IMPRESSION: * Normal left main. * Left anterior descending artery widely open. * Diagonal artery was also normal. * Circumflex artery is a large artery. Circumflex artery in the proximal one-third region is subtotally occluded at 99.9%. Underlying thrombus formation also has been noted. A type C lesion almost 15 mm in length and MARTINEZ grade 2 flow. * The obtuse marginal artery normal. * Circumflex artery after bifurcation is also normal. * The right coronary artery is a very large dominant artery, posterior descending artery at the proximal one-third region. Mid region has been narrowed in the range of 90%. * The ejection fraction is in the range of 40%, hypokinesis of the inferior wall. PLAN OF ACTION: Advised to undergo the intervention on the circumflex, followed by intervention on posterior descending artery arising from the right coronary artery. Kristi Vieyra MD MP/JARAD/UBALDO TID: [id number] RECEIPT: [id number] [facility]
--- NOTE | 2025-10-10 19:18 | DVHPN2 ---
Consult Progress Note Subjective Patient reports: Feels better Other Systems: Patient was seen and evaluated in follow up. Patient is in normal sinus rhythm at time of assessment . Denies any cardiac symptoms. Telemetry reviewed. Objective vital signs Vital Sign Date Time Temp Pulse Resp B/P (MAP) Pulse Ox O2 Delivery O2 Flow Rate FiO2 10/10/25 16:49 97.7 79 19 95 10/10/25 16:47 126/73 (90) 10/10/25 08:00 Room Air* 0 21 Total Intake and Output 10/09/25 10/09/25 10/10/25 15:00 23:00 07:00 Intake Total 600 ml 400 ml Balance 600 ml 400 ml medications Current Medications Medications Dose Ordered Sig/Abdoul Route Start Time Stop Time Status Last Admin Dose Admin Clonidine HCl 0.1 mg Q4HP PRN PO 10/08/25 04:00 Amlodipine Besylate 10 mg DAILY PO 10/08/25 10:00 10/10/25 10:09 10 MG Acetaminophen/ Hydrocodone Bitart 1 tab Q4HP PRN PO 10/08/25 04:00 10/09/25 04:03 1 TAB Ondansetron HCl 4 mg Q4HP PRN IV 10/08/25 04:00 10/08/25 06:23 4 MG Docusate Sodium 100 mg BIDPRN PRN PO 10/08/25 04:00 Morphine Sulfate 2 mg Q30M PRN IV 10/08/25 06:15 10/08/25 06:22 2 MG Sodium Chloride 10 ml Q8HR IV 10/09/25 06:00 10/10/25 14:19 10 ML Nitroglycerin 0.4 mg Q5M PRN SL 10/08/25 23:45 Aspirin 81 mg DAILY PO 10/09/25 10:00 10/10/25 10:09 81 MG Enalapril Maleate 2.5 mg DAILY PO 10/09/25 10:00 10/10/25 10:09 2.5 MG Metoprolol Succinate 25 mg DAILY PO 10/09/25 10:00 10/10/25 10:09 25 MG Atorvastatin Calcium 40 mg HS PO 10/09/25 22:00 10/09/25 21:27 40 MG Acetaminophen 650 mg Q6HP PRN PO 10/08/25 23:45 Clopidogrel Bisulfate 75 mg DAILY PO 10/09/25 10:00 10/10/25 10:10 75 MG Examination: GENERAL:Normal, HEENT:Normal, NECK:Normal, LUNGS:Normal, CVS:Normal, ABDOMEN:Normal, SKIN:Normal, NEURO:Normal laboratory and microbiology Laboratory Tests 10/09/25 05:10 Test 10/09/25 05:10 Range/Units Serum Glucose 88 74-106 mg/dL Problem List/Assessment/Plan Problem List/Assessment/Plan Problem List NSTEMI, s/p PTCA with mechanical thrombectomy of left circumflex and stenting to circumflex and PDA. Hypertensive urgency. Hypertriglyceridemia, newly diagnosed. Significant familial cardiac history. Obesity. Plan/Recommendation Continued all current supportive medical care. Patient has been seen by Zaida Velasquez NP on my behalf, her and I discussed the plan with the patient. The patient underwent a coronary angiogram with left heart catheterization in which there was a thrombectomy of the left circumflex as well as stenting to the circumflex and PDA arteries. A transthoracic echocardiogram reveals an EF of 65%. We will recommend for the patient to continue with dual antiplatelet therapy, lipid-lowering agent, and beta-soila. Extensive education was given to the patient regarding compliance with medications, especially dual antiplatelet therapy uninterrupted for one year. Risk factor modifications such as dietary and lifestyle changes were also discussed with the patient. The patient mentions that she does not have insurance nor a primary care physician. We will order a social service consultation to help the patient with insurance and PCP set up. The patient was also instructed that she will need to follow up with a database consultant in the outpatient setting. Patient verbalized understanding. There is no further inpatient cardiac workup indicated at this time. Additional plan as per the hospital course. Plan discussed with: Patient Date of Service: Oct 10, 2025 Billing Provider: JOSÉ MIGUEL OSORIO MD Cardiology Common Codes: [id number] [facility](High JOSÉ MIGUEL OSORIO MD Oct 10, 2025 17:40
--- NOTE | 2025-10-10 23:20 | DVHPN2 ---
Reviewed: Care Plan, H&P, Labs, Medications, Previous Orders, Radiology Changes from previous H/P or p: No Changes General: Per HPI Eyes: No Pain, No Vision change, No Conjunctivae inflammation, No Eyelid inflammation, No Other, No Redness ENT: No Ear pain, No Ear discharge, No Nose pain, No Nose discharge, No Nose congestion, No Mouth pain, No Mouth swelling, No Throat pain, No Throat swelling, No Other Cardiovascular: Chest Pain; No Palpitations, No Orthopnea, No Paroxysmal Noc. Dyspnea, No Edema, No Lt Headedness, No Other Respiratory: No Cough, No Dry; Shortness of breath; No SOB with excertion, No Wheezing, No Hemoptysis, No Pleuritic Pain, No Sputum, No Other Gastrointestinal: No Nausea, No Vomiting, No Abdominal Pain, No Diarrhea, No Constipation, No Melena, No Hematochezia, No Other Genitourinary: No Dysuria, No Frequency, No Incontinence, No Hematuria, No Retention, No Other Musculoskeletal: No other, No neck pain, No shoulder pain, No arm pain, No back pain, No hand pain, No leg pain, No foot pain Skin: No Rash, No Lesions, No Jaundice, No Bruising, No Other Objective Vitals Vital Signs Date Time Temp Pulse Resp B/P (MAP) Pulse Ox O2 Delivery O2 Flow Rate FiO2 10/10/25 21:00 98.3 81 16 131/83 (99) 93 98.3 10/10/25 20:00 Room Air* 0 21 Intake/Output Intake and Output 10/10/25 07:00 Intake Total 1000 ml Balance 1000 ml Intake Oral 1000 ml # Voids 6 # Bowel Movements 1 Medications Current Medications Medications Dose Ordered Sig/Abdoul Route Start Time Stop Time Status Last Admin Dose Admin Clonidine HCl 0.1 mg Q4HP PRN PO 10/08/25 04:00 Amlodipine Besylate 10 mg DAILY PO 10/08/25 10:00 10/10/25 10:09 10 MG Acetaminophen/ Hydrocodone Bitart 1 tab Q4HP PRN PO 10/08/25 04:00 10/09/25 04:03 1 TAB Ondansetron HCl 4 mg Q4HP PRN IV 10/08/25 04:00 10/08/25 06:23 4 MG Docusate Sodium 100 mg BIDPRN PRN PO 10/08/25 04:00 Morphine Sulfate 2 mg Q30M PRN IV 10/08/25 06:15 10/08/25 06:22 2 MG Sodium Chloride 10 ml Q8HR IV 10/09/25 06:00 10/10/25 21:29 10 ML Nitroglycerin 0.4 mg Q5M PRN SL 10/08/25 23:45 Aspirin 81 mg DAILY PO 10/09/25 10:00 10/10/25 10:09 81 MG Enalapril Maleate 2.5 mg DAILY PO 10/09/25 10:00 10/10/25 10:09 2.5 MG Metoprolol Succinate 25 mg DAILY PO 10/09/25 10:00 10/10/25 10:09 25 MG Atorvastatin Calcium 40 mg HS PO 10/09/25 22:00 10/10/25 21:29 40 MG Acetaminophen 650 mg Q6HP PRN PO 10/08/25 23:45 Clopidogrel Bisulfate 75 mg DAILY PO 10/09/25 10:00 10/10/25 10:10 75 MG Laboratory Results Laboratory Tests 10/09/25 05:10 Assessment/Plan Assessment/Plan NSTEMI, Hypertensive urgency. Hypertriglyceridemia, newly diagnosed. Significant familial cardiac history. Obesity Acute coronary syndrome Hypertensive urgency Leukocytosis, unspecified Generalized weakness 10/09/25 pt to undergo catheterization by cardiology Plan discussed with: Patient My Orders Orders - LUNA DE PAZ DO Procedure Category Date Status Time Discharge DISCHARGE 10/10/25 Transmitted 16:00 Date of Service: Oct 09, 2025 Billing Provider: LUNA DE PAZ DO Common Visit Codes: [id number] INP/OBS CARE(HIGH) LUNA DE PAZ DO Oct 10, 2025 23:20
--- NOTE | 2025-10-10 23:23 | DVHPN2 ---
Reviewed: Care Plan, H&P, Labs, Medications, Previous Orders, Radiology Changes from previous H/P or p: No Changes General: Per HPI Eyes: No Pain, No Vision change, No Conjunctivae inflammation, No Eyelid inflammation, No Other, No Redness ENT: No Ear pain, No Ear discharge, No Nose pain, No Nose discharge, No Nose congestion, No Mouth pain, No Mouth swelling, No Throat pain, No Throat swelling, No Other Cardiovascular: Chest Pain; No Palpitations, No Orthopnea, No Paroxysmal Noc. Dyspnea, No Edema, No Lt Headedness, No Other Respiratory: No Cough, No Dry; Shortness of breath; No SOB with excertion, No Wheezing, No Hemoptysis, No Pleuritic Pain, No Sputum, No Other Gastrointestinal: No Nausea, No Vomiting, No Abdominal Pain, No Diarrhea, No Constipation, No Melena, No Hematochezia, No Other Genitourinary: No Dysuria, No Frequency, No Incontinence, No Hematuria, No Retention, No Other Musculoskeletal: No other, No neck pain, No shoulder pain, No arm pain, No back pain, No hand pain, No leg pain, No foot pain Skin: No Rash, No Lesions, No Jaundice, No Bruising, No Other Objective Vitals Vital Signs Date Time Temp Pulse Resp B/P (MAP) Pulse Ox O2 Delivery O2 Flow Rate FiO2 10/10/25 21:00 98.3 81 16 131/83 (99) 93 98.3 10/10/25 20:00 Room Air* 0 21 Intake/Output Intake and Output 10/10/25 07:00 Intake Total 1000 ml Balance 1000 ml Intake Oral 1000 ml # Voids 6 # Bowel Movements 1 Medications Current Medications Medications Dose Ordered Sig/Abdoul Route Start Time Stop Time Status Last Admin Dose Admin Clonidine HCl 0.1 mg Q4HP PRN PO 10/08/25 04:00 Amlodipine Besylate 10 mg DAILY PO 10/08/25 10:00 10/10/25 10:09 10 MG Acetaminophen/ Hydrocodone Bitart 1 tab Q4HP PRN PO 10/08/25 04:00 10/09/25 04:03 1 TAB Ondansetron HCl 4 mg Q4HP PRN IV 10/08/25 04:00 10/08/25 06:23 4 MG Docusate Sodium 100 mg BIDPRN PRN PO 10/08/25 04:00 Morphine Sulfate 2 mg Q30M PRN IV 10/08/25 06:15 10/08/25 06:22 2 MG Sodium Chloride 10 ml Q8HR IV 10/09/25 06:00 10/10/25 21:29 10 ML Nitroglycerin 0.4 mg Q5M PRN SL 10/08/25 23:45 Aspirin 81 mg DAILY PO 10/09/25 10:00 10/10/25 10:09 81 MG Enalapril Maleate 2.5 mg DAILY PO 10/09/25 10:00 10/10/25 10:09 2.5 MG Metoprolol Succinate 25 mg DAILY PO 10/09/25 10:00 10/10/25 10:09 25 MG Atorvastatin Calcium 40 mg HS PO 10/09/25 22:00 10/10/25 21:29 40 MG Acetaminophen 650 mg Q6HP PRN PO 10/08/25 23:45 Clopidogrel Bisulfate 75 mg DAILY PO 10/09/25 10:00 10/10/25 10:10 75 MG Laboratory Results Laboratory Tests 10/09/25 05:10 Assessment/Plan Assessment/Plan NSTEMI, Hypertensive urgency. Hypertriglyceridemia, newly diagnosed. Significant familial cardiac history. Obesity Acute coronary syndrome Hypertensive urgency Leukocytosis, unspecified Generalized weakness 10/09/25 pt to undergo catheterization by cardiology 10/10/25 pt to undergo staged PCI PT/OT and possible d/c in 24 hours Plan discussed with: Patient My Orders Orders - LUNA DE PAZ DO Procedure Category Date Status Time Discharge DISCHARGE 10/10/25 Transmitted 16:00 Date of Service: Oct 10, 2025 Billing Provider: LUNA DE PAZ DO Common Visit Codes: [id number] INP/OBS CARE(HIGH) LUNA DE PAZ DO Oct 10, 2025 23:23
[2025-10-11 05:00] VITALS: BP 123/94; PULSE 83; RESP 16; TEMP 97.7; O2SAT 95
[2025-10-11 08:00] VITALS: PULSE 76
[2025-10-11 08:30] VITALS: RESP 17
[2025-10-11 08:53] VITALS: BP 125/79; PULSE 83; RESP 19; TEMP 98.2; O2SAT 92
--- NOTE | 2025-10-11 10:53 | ECG ---
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
[2025-10-11 12:51] VITALS: BP 136/90; PULSE 80; RESP 16; TEMP 97.7; O2SAT 94
--- NOTE | 2025-10-11 13:44 | DVHPN2 ---
Subjective No chest pain Reviewed: Care Plan, H&P, Labs, Medications, Previous Orders, Radiology Changes from previous H/P or p: No Changes General: Per HPI Eyes: No Pain, No Vision change, No Conjunctivae inflammation, No Eyelid inflammation, No Other, No Redness ENT: No Ear pain, No Ear discharge, No Nose pain, No Nose discharge, No Nose congestion, No Mouth pain, No Mouth swelling, No Throat pain, No Throat swelling, No Other Cardiovascular: Chest Pain; No Palpitations, No Orthopnea, No Paroxysmal Noc. Dyspnea, No Edema, No Lt Headedness, No Other Respiratory: No Cough, No Dry; Shortness of breath; No SOB with excertion, No Wheezing, No Hemoptysis, No Pleuritic Pain, No Sputum, No Other Gastrointestinal: No Nausea, No Vomiting, No Abdominal Pain, No Diarrhea, No Constipation, No Melena, No Hematochezia, No Other Genitourinary: No Dysuria, No Frequency, No Incontinence, No Hematuria, No Retention, No Other Musculoskeletal: No other, No neck pain, No shoulder pain, No arm pain, No back pain, No hand pain, No leg pain, No foot pain Skin: No Rash, No Lesions, No Jaundice, No Bruising, No Other Objective Vitals Vital Signs Date Time Temp Pulse Resp B/P (MAP) Pulse Ox O2 Delivery O2 Flow Rate FiO2 10/11/25 12:51 97.7 80 16 136/90 (105) 94 97.7 10/11/25 08:30 Room Air* 0 21 Intake/Output Intake and Output 10/11/25 07:00 Intake Total 1300 ml Balance 1300 ml Intake Oral 1300 ml # Voids 8 # Bowel Movements 3 General Appearance: Alert, Oriented X3 HEENT: Atraumatic Cardiovascular: Regular rate, Normal S1, Normal S2 Abdomen: Normal bowel sounds Medications Current Medications Medications Dose Ordered Sig/Abdoul Route Start Time Stop Time Status Last Admin Dose Admin Clonidine HCl 0.1 mg Q4HP PRN PO 10/08/25 04:00 Amlodipine Besylate 10 mg DAILY PO 10/08/25 10:00 10/11/25 09:33 10 MG Acetaminophen/ Hydrocodone Bitart 1 tab Q4HP PRN PO 10/08/25 04:00 10/09/25 04:03 1 TAB Ondansetron HCl 4 mg Q4HP PRN IV 10/08/25 04:00 10/08/25 06:23 4 MG Docusate Sodium 100 mg BIDPRN PRN PO 10/08/25 04:00 Morphine Sulfate 2 mg Q30M PRN IV 10/08/25 06:15 10/08/25 06:22 2 MG Sodium Chloride 10 ml Q8HR IV 10/09/25 06:00 10/11/25 13:13 10 ML Nitroglycerin 0.4 mg Q5M PRN SL 10/08/25 23:45 Aspirin 81 mg DAILY PO 10/09/25 10:00 10/11/25 09:32 81 MG Enalapril Maleate 2.5 mg DAILY PO 10/09/25 10:00 10/11/25 09:32 2.5 MG Metoprolol Succinate 25 mg DAILY PO 10/09/25 10:00 10/11/25 09:44 25 MG Atorvastatin Calcium 40 mg HS PO 10/09/25 22:00 10/10/25 21:29 40 MG Acetaminophen 650 mg Q6HP PRN PO 10/08/25 23:45 Clopidogrel Bisulfate 75 mg DAILY PO 10/09/25 10:00 10/11/25 09:32 75 MG Laboratory Results Laboratory Tests 10/09/25 05:10 Assessment/Plan Assessment/Plan NSTEMI, Hypertensive urgency. Hypertriglyceridemia, newly diagnosed. Significant familial cardiac history. Obesity Acute coronary syndrome Hypertensive urgency Leukocytosis, unspecified Generalized weakness 10/09/25 pt to undergo catheterization by cardiology 10/10/25 pt to undergo staged PCI PT/OT and possible d/c in 24 hours 10/11 Pending stage PCI on circumflex and posterior descending artery Plan discussed with: Patient Date of Service: Oct 11, 2025 Billing Provider: MARIE CLAUDIO MD Common Visit Codes: [id number] INP/OBS CARE(HIGH) MARIE CLAUDIO MD Oct 11, 2025 13:44
--- NOTE | 2025-10-11 14:29 | DVHDS2 ---
Discharge Summary Date of Admission Oct 08, 2025 at 05:04 Date of Discharge: Oct 10, 2025 Labs/Diagnostic Data: Laboratory Results Test 10/09/25 05:10 10/08/25 19:20 10/08/25 07:03 10/08/25 05:40 White Blood Count 9.4 10^3/uL (4.4-10.8) Red Blood Count 4.43 10^6/uL (4.0-5.20) Hemoglobin 14.5 g/dL (12.2-16.2) Hematocrit 42.7 % (36.0-46.0) Mean Corpuscular Volume 96.4 fL (80.0-100.0) Mean Corpuscular Hemoglobin 32.7 pg (28.0-32.0) Mean Corpuscular Hemoglobin Concent 33.9 g/dL (32.0-36.0) Red Cell Distribution Width 13.8 % (11.8-14.3) Platelet Count 265 10^3/uL (140-450) Mean Platelet Volume 7.4 fL (6.9-10.8) Neutrophils (%) (Auto) 69.0 % (37.0-80.0) Lymphocytes (%) (Auto) 20.8 % (10.0-50.0) Monocytes (%) (Auto) 6.9 % (0.0-12.0) Eosinophils (%) (Auto) 2.8 % (0.0-7.0) Basophils (%) (Auto) 0.5 % (0.0-2.0) Neutrophils # (Auto) 6.5 10 ^3/uL (1.6-8.6) Lymphocytes # (Auto) 2.0 10 ^3/uL (0.4-5.4) Monocytes # (Auto) 0.7 10 ^3/uL (0-1.3) Eosinophils # (Auto) 0.3 10 ^3/uL (0-0.8) Basophils # (Auto) 0 10 ^3/uL (0-0.2) Nucleated Red Blood Cells 0.0 % Sodium Level 141 mmol/L (136-145) Potassium Level 3.5 mmol/L (3.5-5.1) Chloride Level 104 mmol/L (98-107) Carbon Dioxide Level 27 mmol/L (20-31) Anion Gap 10 (5-15) Blood Urea Nitrogen 9 mg/dL (9-23) Creatinine 0.59 mg/dL (0.550-1.02) Glomerular Filtration Rate Calc 105 mL/min (>90) BUN/Creatinine Ratio 15.3 (10.0-20.0) Serum Glucose 88 mg/dL (74-106) Calcium Level 9.1 mg/dL (8.7-10.4) Magnesium Level 1.9 mg/dL (1.6-2.6) Total Bilirubin 0.8 mg/dL (0.2-1.0) Aspartate Amino Transferase (AST) 82 U/L (13-40) Alanine Aminotransferase (ALT) 26 U/L (7-40) Alkaline Phosphatase 82 U/L (46-116) Troponin I High Sensitivity 8951 ng/L (</=34) Total Protein 6.4 g/dL (5.7-8.2) Albumin 3.7 g/dL (3.2-4.8) Triglycerides Level 217 mg/dL (< 150) Cholesterol Level 145 mg/dL (< 200) LDL Cholesterol 71 mg/dL (< 100) HDL Cholesterol 49 mg/dL (40-59) Prothrombin Time 10.3 sec (9.3-11.8) Prothrombin Time INR 0.97 (0.9-1.15) Activated Partial Thromboplast Time 41.1 SEC (24.5-34.5) Thyroid Stimulating Hormone (TSH) 1.86 uIU/mL (0.55-4.78) Hemoglobin A1c 5.6 % A1C (<5.7) Other Laboratory Tests 10/09/25 05:10 Brief Hx & Hospital Course: 55-year-old male with past medical history of hypertension who presented to [facility] ED with complaint of chest pain. Patient reports he has been experiencing diffuse chest pain for the past 2 days associated with shortness of breaths. Patient was seen and evaluated in the ED, laboratory data shows WBC 11.3, platelets 306, sodium 140, potassium 3.8, BUN 18, creatinine 0.64, GFR 110, glucose 140, calcium 9.5, troponin 149, blood pressure 220/109 trending down to 164/88, heart rate 79, temperature 97.6 F, O2 saturation 98% on room air. Chest x-ray show no acute cardiopulmonary abnormality. Patient was given clonidine 0.2 mg p.o. x1, please see medication orders section in the computer. On my assessment, patient denied chest pain at this moment, no headache, dizziness, diaphoresis, currently on oxygen, no diarrhea, nausea, vomiting, fever, no chills. Patient was admitted for further evaluation and medical management. During hospital stay Taken to cath and had blockage of circumflex artery Stated PCI done by cardiology Condition at Discharge: Good Final Diagnosis/Problems List NSTEMI, Hypertensive urgency. Hypertriglyceridemia, newly diagnosed. Significant familial cardiac history. Obesity Acute coronary syndrome Hypertensive urgency Leukocytosis, unspecified Generalized weakness Discharge Disposition: Home Discharge Instruct/Medications Diet: Cardiac 2g Na,low cholest Activity: No Restrictions, As Tolerated Scheduled Amlodipine Besylate (Norvasc Tablet), 10 MG PO DAILY Aspirin (Aspirin Low Dose), 81 MG PO DAILY Atorvastatin Calcium (Atorvastatin Calcium), 40 MG PO HS Clopidogrel Bisulfate (Clopidogrel), 75 MG PO DAILY Enalapril Maleate (Enalapril Maleate), 2.5 MG PO DAILY Metoprolol Succinate (Toprol Xl), 25 MG PO DAILY Discharge Statement: "Patient was advised to return to the ER or call 911 if any headaches, dizziness, shortness of breath, chest pain, abdominal pain, bleeding, fevers, or worsening of medical condition. Patient was counseled about treatment plan, medications, possible side effects, patientverbalized understanding. All questions were answered to the best of my ability. This discharge took greater then 30 minutes in planning, reviewing documentation, counseling the patient, and discussing with other team members." ASSESSMENT ASSESSMENT Assessment Acute Coronary Syndrome Date of Service: Oct 11, 2025 Billing Provider: MARIE CLAUDIO MD Common Visit Codes: [id number] DISCH DAY >30min MARIE CLAUDIO MD Oct 11, 2025 14:29
--- NOTE | 2025-10-12 00:47 | DVHPN2 ---
Progress Note - Dictate Date Seen: Oct 11, 2025 Medical Necessity Reason Pt with a Central, PICC or Fol: No Subjective Patient was seen and evaluated in follow up. Patient has no new complaints at this time. Patient denies any cardiac symptoms. Patient is cardiac stable for discharge. Telemetry reviewed. vital signs Vital Sign Date Time Temp Pulse Resp B/P (MAP) Pulse Ox O2 Delivery O2 Flow Rate FiO2 10/11/25 12:51 97.7 80 16 136/90 (105) 94 97.7 10/11/25 08:30 Room Air* 0 21 objective GENERAL: Alert and oriented x 3. No acute distress. EYES: PERRL, EOMI. Anicteric. HENT: Moist mucous membranes. LUNGS: Clear to auscultation bilaterally. CARDIOVASCULAR: Regular rate and rhythm. ABDOMEN: Soft, non-tender and non-distended. EXTREMITIES: No edema. NEUROLOGIC: No focal neurological deficits. SKIN: Warm, dry. laboratory and microbiology Laboratory Tests 10/09/25 05:10 Test 10/09/25 05:10 Range/Units Serum Glucose 88 74-106 mg/dL Problem List NSTEMI, s/p PTCA with mechanical thrombectomy of left circumflex and stenting to circumflex and PDA. Hypertensive urgency. Hypertriglyceridemia, newly diagnosed. Significant familial cardiac history. Obesity. Assessment/Plan Continued all current supportive medical care. The patient underwent a coronary angiogram with left heart catheterization in which there was a thrombectomy of the left circumflex as well as stenting to the circumflex and PDA arteries. A transthoracic echocardiogram reveals an EF of 65%. We will recommend for the patient to continue with dual antiplatelet therapy, lipid-lowering agent, and beta-soila. Extensive education was given to the patient regarding compliance with medications, especially dual antiplatelet therapy uninterrupted for one year. Risk factor modifications such as dietary and lifestyle changes were also discussed with the patient. The patient mentions that she does not have insurance nor a primary care physician. We will order a social service consultation to help the patient with insurance and PCP set up. The patient was also instructed that she will need to follow up with a wrapper stemmer hand in the outpatient setting. Patient verbalized understanding. Additional plan as per the hospital course. Plan discussed with: Patient JOSÉ MIGUEL OSORIO MD Oct 12, 2025 00:47
== END 2025-10-11 16:25 | disposition home or self-care (01) | DRG 174 ==
LOC: ER 01:40 → EDSEX 05:04 → OVERFLOW 05:04 → TELE-CENTR 15:18
PROVIDERS: ADMIT Hospitalist; ATTEND Hospitalist
PROC: 4A023N7 Measurement of Cardiac Sampling and Pressure, Left Heart, Percutaneous Approach (ICD-10-PCS; principal; 2025-10-08)
PROC: 027135Z Dilation of Coronary Artery, Two Arteries with Two Drug-eluting Intraluminal Devices, Percutaneous Approach (ICD-10-PCS; 2025-10-08)
PROC: 02C03ZZ Extirpation of Matter from Coronary Artery, One Artery, Percutaneous Approach (ICD-10-PCS; 2025-10-08)
PROC: B211YZZ Fluoroscopy of Multiple Coronary Arteries using Other Contrast (ICD-10-PCS; 2025-10-08)
PROC: B240ZZ3 Ultrasonography of Single Coronary Artery, Intravascular (ICD-10-PCS; 2025-10-08)
PROC: B215YZZ Fluoroscopy of Left Heart using Other Contrast (ICD-10-PCS; 2025-10-08)
DX: I21.4 Non-ST elevation (NSTEMI) myocardial infarction (principal); I16.0 Hypertensive urgency; E66.01 Morbid (severe) obesity due to excess calories; I10 Essential (primary) hypertension; D72.829 Elevated white blood cell count, unspecified; E78.1 Pure hyperglyceridemia; Z68.41 Body mass index [BMI] 40.0-44.9, adult; G89.29 Other chronic pain; M54.9 Dorsalgia, unspecified; Z59.71 Insufficient health insurance coverage; Z82.49 Family history of ischemic heart disease and other diseases of the circulatory system; Z98.61 Coronary angioplasty status
CPT/HCPCS: 36415; 71045; 80048; 80053; 80061; 83036; 83735; 84443; 84484; 85025; 85610; 85730; 92941; 92973; 92978; 93005; 93306; 93458; 99152; 99291; G0378; J2250; J2405; Q9967